=== PATIENT | male | born 1945 | race Native Hawaiian/Other Pacific Islander ===

== ENCOUNTER 2017-09-18 07:13 | Inpatient (IN) | payer OTHER, MEDICAID ==
--- NOTE | 2017-08-18 09:57 | CP.PCM.PN ---
Subjective - Date & Time of Evaluation Date of Evaluation: 08/18/17 Time of Evaluation: 09:55 - Subjective Subjective: Patient has an increased wbc and is scheduled to see outreach rep in august. since this is an elective case, will wait for outreach rep to evaluate patient to do surgery. therefore the case is cancelled for today. Objective - Vital Signs/Intake and Output Vital Signs (last 24 hours): Temp Pulse Resp BP Pulse Ox 97.9 F 75 18 151/90 H 97 08/18/17 09:04 08/18/17 09:04 08/18/17 09:04 08/18/17 09:04 08/18/17 09:04 - Medications Medications: Current Medications Acetaminophen/Codeine Phosphate (Tylenol/Codeine 300 Mg/30 Mg) 2 ea PO Q6 PRN PRN Reason: Pain, moderate (4-7) Dextrose/Sodium Chloride (Dextrose 5%/0.45% Ns 1000 Ml) 1,000 mls @ 100 mls/hr IV .Q10H DORINDA
[~2017-09-18 07:13] MED LIST: Acetaminophen-Codeine 300/30 mg Tab PO PRN; Dextrose 5%/0.45% NS 1,000 ML IV SCH; EPINEPHrine 1:1000 Nasal Sol(30mL) ONE; Lidocaine 2% w Epi 1:100,000 Inj IJ ONE; ceFAZolin IV 1 gm in Dextrose 0 GM/0 ML BAG IVPB ONE
[2017-09-18] MEDS ORDERED: Lidocaine 1%/Epinephrine 1:100000 30 ml vial IJ ONE (07:25)
[2017-09-18] MEDS ORDERED: Dextrose 5%/0.45% NS 1,000 ML IV SCH ×2 (08:30→17:53)
[2017-09-18] MEDS ORDERED: Propofol 10 mg/ml Inj (20 ML) ONE (08:58)
[2017-09-18] MEDS ORDERED: Midazolam 2 MG/2 ML VIAL ONE (09:00)
[2017-09-18] MEDS ORDERED: EPINEPHrine 1:1000 Nasal Sol(30mL) ONE (09:32)
[2017-09-18] MEDS ORDERED: Lactated Ringer's 1,000 ML IV ONE ×2 (09:40→12:00)
[2017-09-18] MEDS: ceFAZolin IV 2 gm in Dextrose 1 GM/50 ML BAG IVPB ONE ×2 (09:45→09:50)
[2017-09-18] MEDS ORDERED: Rocuronium 10 mg/ml (5 ml) ONE (10:10)
[2017-09-18] MEDS: Labetalol 25mg/5ml Syringe IVP PRN ×3 (11:12→11:40)
[2017-09-18] MEDS: HYDROmorphone 0.5 mg/0.5 ml ISec IVP PRN ×3 (11:16→11:49)
[2017-09-18] MEDS ORDERED: (Novolin R) Insulin Human Regular 100 units/ml vial IV ONE ×2 (12:00→13:31)
[2017-09-18] MEDS ORDERED: (Novolin R) Insulin Human Regular 100 units/ml vial ONE (13:40)
--- NOTE | 2017-09-18 14:38 | OP ---
PROCEDURE DATE: 09/18/2017 PREOPERATIVE DIAGNOSIS: Sinusitis. POSTOPERATIVE DIAGNOSIS: Sinusitis. PROCEDURE: Endoscopic bilateral maxillary antrostomy, endoscopic bilateral ethmoidectomy, endoscopic bilateral frontal sinusotomy, and endoscopic bilateral sphenoidotomy. SIGNIFICANT FINDINGS: Sinusitis noted in ethmoid sinuses, polyps noted in ethmoid sinuses, maxillary antrum stenosed on both sides, sphenoid antrum stenosed on both sides, and frontal recess stenosed on both sides. Foreign body noted in the left nasal cavity. DESCRIPTION OF PROCEDURE: The patient was brought into the room, placed in the supine position, and anesthesia was initiated through an ET tube. Navigation was set up and used throughout the case in order to ensure that the skull base and orbit were not entered. Adrenaline-soaked pledgets were inserted into the nasal cavity that remained there for at least 5 minutes and removed. The patient was draped in the usual manner. Attention was turned to the left. A 0-degree scope was inserted into the left nasal cavity. Excess of crusting was noted inside the nasal cavity. On inspection, there was noted of the foreign body in the nasal cavity, which was removed. Polyps were noted emanating from the middle meatus. The polyps and middle turbinate were injected with lidocaine with epinephrine. The polyps emanating from the middle meatus were removed using a debrider. The uncinate process was medialized using a Norton elevator and removed using a debrider. The ethmoid bulla was entered inferomedially going posteriorly to the basal lamella, then anteriorly and superiorly until the ethmoid bulla was removed. The basal lamella was entered, posterior ethmoid cells were entered and opened. The skull base was identified and followed anteriorly all the way to the area of the anterior ethmoid air cells. Frontal recess was noted to be stenosed and opened using forceps. Sphenoid antrum was noted to be stenosed and opened using forceps. Maxillary antrum was located using a curved suction and noted to be stenosed and opened using forceps. Attention was turned to the other side. Polyps emanating from the middle meatus were debrided using a debrider. The middle turbinate was medialized and the uncinate process were medialized using a Norton elevator and uncinate process was removed using a debrider. The ethmoid bulla was entered inferomedially using a debrider going posteriorly to the basal lamella anteriorly and superiorly until the ethmoid bulla was removed. The basal lamella was entered. Posterior ethmoid cells were entered and opened. The skull base was identified and followed anteriorly all the way to the area of the anterior ethmoid air cells. Frontal recess was noted to be stenosed and opened using forceps. The sphenoid antrum was noted to be stenosed and opened using forceps. The maxillary antrum was noted to be stenosed and opened using forceps. The bleeding was controlled using Adrenaline-soaked pledgets and suction cautery. Splints were placed. The patient was taken off anesthesia and taken to recovery room in stable manner. Renny Lara MD [facility]TD[facility]
[2017-09-18] MEDS ORDERED: Metoprolol Succinate 100 mg XL Tab PO STA (16:17)
[2017-09-18] MEDS: Acetaminophen-Codeine 300/30 mg Tab PO PRN (16:36)
[2017-09-18] MEDS ORDERED: Albuterol-Ipratrop 3 mg / 0.5 (3 ml) UD INH PRN (17:49)
--- NOTE | 2017-09-18 17:50 | CP.PCM.CON ---
History of Present Illness - History of Present Illness History of Present Illness: The pt is a 72 year old man with HTN, CAD, elevated WBC (sees Dr Escalante), and DM. Pt did not take beta licha and Micky inhibitor today, as he was npo for surgery. During ENT surgery, he received adrenaline and steroids. BP post op was 201/112. IV hydralazine and labetaolol were given, and the BP came down to 170 systolic. The pt has had 4 coronary PCI, the last in 2013. ASA and plavix were held fo 8 days. No chest pain or BENSON. pt is post op, a little groggy. Review of Systems - Review of Systems All systems: reviewed and no additional remarkable complaints except (as abov.e) Past Patient History - Past Medical History & Family History Past Medical History?: Yes - Past Social History Smoking Status: Never Smoked - CARDIAC Hx Cardiac Disorders: Yes Hx Hypertension: Yes Other/Comment: HX: CARDIAC STENTS(4) - PULMONARY Hx Respiratory Disorders: No - NEUROLOGICAL Hx Neurological Disorder: No - HEENT Hx HEENT Problems: Yes Other/Comment: HX: MAXILLARY SINSUS, FRONTAL SINSUS, ETHMOID SINSUS, SPHENOID SINSUS - RENAL Hx Chronic Kidney Disease: No - ENDOCRINE/METABOLIC Hx Endocrine Disorders: Yes Hx Diabetes Mellitus Type 1: Yes - HEMATOLOGICAL/ONCOLOGICAL Hx Blood Disorders: Yes Other/Comment: Leukocytosis (See Dr. Campbell's note) - INTEGUMENTARY Hx Dermatological Problems: No - MUSCULOSKELETAL/RHEUMATOLOGICAL Hx Musculoskeletal Disorders: No - GASTROINTESTINAL Hx Gastrointestinal Disorders: No - GENITOURINARY/GYNECOLOGICAL Hx Genitourinary Disorders: No - PSYCHIATRIC Hx Psychophysiologic Disorder: No - SURGICAL HISTORY Hx Surgeries: Yes Hx Angioplasty: Yes Hx Coronary Stent: Yes ((4)) - ANESTHESIA Hx Anesthesia: Yes Hx Anesthesia Reactions: No Hx Malignant Hyperthermia: No Has any member of the family had a problem w/ anesthesia?: No Meds Allergies/Adverse Reactions: Allergies Allergy/AdvReac Type Severity Reaction Status Date / Time No Known Allergies Allergy Verified 07/31/17 07:53 - Medications Medications: Current Medications Acetaminophen/Codeine Phosphate (Tylenol/Codeine 300 Mg/30 Mg) 2 ea PO Q6 PRN PRN Reason: Pain, moderate (4-7) Last Admin: 09/18/17 16:36 Dose: 2 ea Dextrose/Sodium Chloride (Dextrose 5%/0.45% Ns 1000 Ml) 1,000 mls @ 100 mls/hr IV .Q10H DORINDA Physical Exam - Constitutional Appears: Well (nasal packing) - Head Exam Head Exam: ATRAUMATIC - Eye Exam Eye Exam: EOMI Pupil Exam: NORMAL ACCOMODATION - Respiratory Exam Respiratory Exam: Rhonchi - Cardiovascular Exam Cardiovascular Exam: REGULAR RHYTHM - GI/Abdominal Exam GI & Abdominal Exam: Normal Bowel Sounds - Exam External exam: NORMAL EXTERNAL EXAM - Extremities Exam Extremities exam: Positive for: normal inspection - Back Exam Back exam: NORMAL INSPECTION - Neurological Exam Neurological exam: Alert, CN II-XII Intact, Oriented x3 - Psychiatric Exam Psychiatric exam: Normal Affect, Normal Mood - Skin Skin Exam: Normal Color Results - Vital Signs Recent Vital Signs: Last Vital Signs Temp 98.9 F 09/18/17 16:36 Pulse 106 H 09/18/17 16:36 Resp 20 09/18/17 16:36 BP 158/80 H 09/18/17 16:36 Pulse Ox 95 09/18/17 16:36 - Labs Labs: Laboratory Results - last 24 hr 09/18/17 09/18/17 09/18/17 07:51 11:50 13:28 POC Glucose (mg/dL) 275 H 311 H 352 H 09/18/17 14:46 POC Glucose (mg/dL) 312 H Assessment & Plan - Assessment and Plan (Free Text) Assessment: 1. HTN: Latest bp is 140 systolic with meds from home given. 2. As pt has cad, would avoid additional adrenaline if possible.. 3. Will order ecg. 4. pt has bilateral rhonchi, Dr Yee aware, consider inhaltion treatment. 4. ASA to be resumed when deemed safe by Dr Lara. Plavix can be held for now. 5. p very somnolent, snores, thick neck, overweight: likely significant sleep apnea; outpatient sleep study is advised.
[2017-09-18] MEDS ORDERED: (Lantus) Insulin Glargine, Recombinant SC SCH ×2 (18:00→22:00)
[2017-09-18 18:15] LABS: LYMPH # 1.8 K/uL (1.0-4.3); NRBC % 0.1 % (0.0-2.0)
[2017-09-18 18:24] LABS: CHLORIDE 97 mmol/L (98-107); SODIUM 129 mmol/L (132-148)
[2017-09-18 18:25] LABS: POTASSIUM 5.5 mmol/L (3.6-5.2)
[2017-09-18 18:26] LABS: BILIRUBIN,TOTAL 1.5 mg/dL (0.2-1.3); GFR AFRICAN-AMERICAN > 60
[2017-09-18 18:27] LABS: ALB/GLOB RATIO 1.4 (1.0-2.1); ALKALINE PHOSPHATASE 99 U/L (38-126); ALT/SGPT 91 U/L (21-72); AST/SGOT 77 U/L (17-59); BLOOD UREA NITROGEN 14 mg/dL (9-20); CARBON DIOXIDE 19 mmol/L (22-30); GLUCOSE,RANDOM 356 mg/dL (75-110); PHOSPHOROUS 3.5 mg/dL (2.5-4.5); TOTAL PROTEIN 7.5 g/dL (6.3-8.3)
[2017-09-18 18:28] LABS: BASO # 0.5 K/uL (0.0-0.2); BASO % 1.1 % (0.0-2.0); CALCIUM 8.3 mg/dl (8.6-10.4); EOS # 0.2 K/uL (0.0-0.7); EOS % 0.5 % (0.0-4.0); HEMATOCRIT 38.9 % (35.0-51.0); LYMPH % 4.2 % (20.0-40.0); MAGNESIUM 1.4 mg/dL (1.6-2.3); MEAN CELL VOLUME 84.4 fL (80.0-94.0); MEAN CORPUSCULAR HEMOGLOBIN 26.7 pg (27.0-31.0); MEAN CORPUSCULAR HGB CONC 31.6 g/dL (33.0-37.0); MEAN PLATELET VOLUME 10.1 fL (7.2-11.7); MONO # 1.1 K/uL (0.0-0.8); MONO % 2.5 % (0.0-10.0); PLATELET COUNT 311 K/uL (130-400)
[2017-09-18 18:38] LABS: WHITE BLOOD COUNT 42.1 K/uL (4.8-10.8)
[2017-09-18] MEDS: (Novolin R) Insulin Human Regular 100 units/ml vial SC SCH ×2 (18:50→21:16)
[2017-09-18 19:11] LABS: METAMYELOCYTE 3 % (0-0)
[2017-09-18 19:12] LABS: MYELOCYTE 2 % (0-0); NEUTROPHIL 81 % (50-75); TOTAL CELLS COUNTED 100
[2017-09-18 19:13] LABS: PLATELET CLUMPS PRESENT
[2017-09-18] MEDS: Piperacill/Tazo 3.375gm in Dex 3.375 GM/50 ML BAG IVPB SCH (21:12)
[2017-09-18 21:32] LABS: RBC URINE < 1 /hpf (0-3); URINE BILIRUBIN NEGATIVE (NEGATIVE); URINE BLOOD NEGATIVE (NEGATIVE); URINE COLOR Yellow (YELLOW); URINE GLUCOSE (UA) 3+ mg/dL (Normal); URINE KETONE 1+ mg/dL (NEGATIVE); URINE LEUKOCYTE ESTERASE NEG Leu/uL (Negative); URINE PROTEIN NEGATIVE (NEGATIVE); URINE UROBILINOGEN NORMAL mg/dL (0.2-1.0)
--- NOTE | 2017-09-18 21:54 | CP.PCM.HP ---
<Isaac Larkin - Last Filed: 09/18/17 22:55> History of Present Illness - History of Present Illness History of Present Illness: Patient seen and evaluated at approximately 18:00 on 09/18/17 in SDS Room 6 Patient is currently a full code status. In the case of emergencies, please contact the Son, Néstor Pandey. He can be reached at [phone]. CC: can't breathe, elevated BP HPI: 72 year old male with PMHx significant for HTN, CAD s/p 4 stents, DM , Chronic Leukocytosis and suspected JESUS presented in [facility] following ENT surgery earlier in the day. Patient states that he was scheduled to have the procedure yesterday but then it was rescheduled to today. Patient states that in preparation for the procedure, he was asked to skip his BP medication, He states that he did not take his medications for the past two days as a result. Patient states that ten years he go, he had some sort of trauma to the face which resulted in a foreign body which entered and obstructed his nasal passages. Patient states that he has has problems breathing off and on as a result. After the procedure earlier today, patient's blood pressure became quite elevated. He admitted to a mild headache and some dyspnea. Patient denies chest pain, palpitations, paresthesias, nausea and vomiting. PMHx-refer to above PSHx- Stenting procedure Fam Hx- reviewed and patient denies Social- admits to smoking a few cigarettes over 40 years ago for approx 1-2 years; denies alcohol and drug use Meds- Atorvastatin 10 mg, ASA 81 mg, Effient 10 mg, Enalapril 10 mg, Metoprolol Succinate 200 mg . All are taken once daily; Insulin Allergies- NKDA PMD: Dr. Branden Guerra Present on Admission - Present on Admission Any Indicators Present on Admission: No Review of Systems - Constitutional Constitutional: absent: Weight Loss, Weakness - EENT Eyes: absent: Blurred Vision, Change in Vision - Cardiovascular Cardiovascular: Dyspnea. absent: Chest Pain, Chest Pain at Rest - Gastrointestinal Gastrointestinal: absent: Nausea, Vomiting - Neurological Neurological: absent: Abnormal Hearing, Abnormal Movements - Hematologic/Lymphatic Hematologic: absent: Easy Bruising Past Patient History - Past Medical History & Family History Past Medical History?: Yes - Past Social History Smoking Status: Former Smoker Alcohol: None Drugs: Denies - CARDIAC Hx Cardiac Disorders: Yes Hx Hypertension: Yes Other/Comment: HX: CARDIAC STENTS(4) - PULMONARY Hx Respiratory Disorders: No - NEUROLOGICAL Hx Neurological Disorder: No - HEENT Hx HEENT Problems: Yes Other/Comment: HX: MAXILLARY SINSUS, FRONTAL SINSUS, ETHMOID SINSUS, SPHENOID SINSUS - RENAL Hx Chronic Kidney Disease: No - ENDOCRINE/METABOLIC Hx Endocrine Disorders: Yes Hx Diabetes Mellitus Type 1: Yes - HEMATOLOGICAL/ONCOLOGICAL Hx Blood Disorders: Yes Other/Comment: Leukocytosis (See Dr. Campbell's note) - INTEGUMENTARY Hx Dermatological Problems: No - MUSCULOSKELETAL/RHEUMATOLOGICAL Hx Musculoskeletal Disorders: No Hx Falls: No - GASTROINTESTINAL Hx Gastrointestinal Disorders: No - GENITOURINARY/GYNECOLOGICAL Hx Genitourinary Disorders: No - PSYCHIATRIC Hx Psychophysiologic Disorder: No Hx Substance Use: No - SURGICAL HISTORY Hx Surgeries: Yes Hx Angioplasty: Yes Hx Coronary Stent: Yes ((4)) - ANESTHESIA Hx Anesthesia: Yes Hx Anesthesia Reactions: No Hx Malignant Hyperthermia: No Has any member of the family had a problem w/ anesthesia?: No Meds Allergies/Adverse Reactions: Allergies Allergy/AdvReac Type Severity Reaction Status Date / Time No Known Allergies Allergy Verified 07/31/17 07:53 Physical Exam - Constitutional Appears: Non-toxic, No Acute Distress - Head Exam Head Exam: ATRAUMATIC, NORMAL INSPECTION, NORMOCEPHALIC - Eye Exam Eye Exam: EOMI, Normal appearance, PERRL - ENT Exam ENT Exam: Mucous Membranes Moist Additional comments: residual dried blood in the oral cavity as well as outer nares - Expanded ENT Exam Expanded Mouth exam: tongue normal - Neck Exam Neck exam: Positive for: Full Rom - Respiratory Exam Respiratory Exam: Rhonchi, NORMAL BREATHING PATTERN. absent: Wheezes - Cardiovascular Exam Cardiovascular Exam: Tachycardia, +S1, +S2. absent: JVD - GI/Abdominal Exam GI & Abdominal Exam: Normal Bowel Sounds, Soft. absent: Firm, Guarding, Tenderness Additional comments: central obesity - Extremities Exam Extremities exam: Positive for: full ROM, pedal edema Additional comments: unilateral LE swelling - Back Exam Back exam: FULL ROM - Neurological Exam Neurological exam: Alert, CN II-XII Intact, Oriented x3 - Psychiatric Exam Psychiatric exam: Normal Affect, Normal Mood - Skin Skin Exam: Dry, Intact, Normal Color, Warm Results - Vital Signs Recent Vital Signs: Last Vital Signs Temp 98.5 F 09/18/17 19:52 Pulse 109 H 09/18/17 21:07 Resp 17 09/18/17 19:52 BP 160/77 H 09/18/17 19:52 Pulse Ox 93 L 09/18/17 19:52 - Labs Result Diagrams: 09/18/17 18:11 09/18/17 18:11 Labs: Laboratory Results - last 24 hr 09/18/17 09/18/17 09/18/17 07:51 11:50 13:28 WBC RBC Hgb Hct MCV MCH MCHC RDW Plt Count MPV Neut % (Auto) Lymph % (Auto) [place] % (Auto) Eos % (Auto) Baso % (Auto) Neut # Lymph # [place] # Eos # Baso # Neutrophils % (Manual) Band Neutrophils % Lymphocytes % (Manual) Monocytes % (Manual) Metamyelocytes % Myelocytes % Blast Cells % Platelet Estimate Plt Clumps, EDTA Sodium Potassium Chloride Carbon Dioxide Anion Gap BUN Creatinine Est GFR ( Amer) Est GFR (Non-Af Amer) POC Glucose (mg/dL) 275 H 311 H 352 H Random Glucose Calcium Phosphorus Magnesium Total Bilirubin AST ALT Alkaline Phosphatase Total Protein Albumin Globulin Albumin/Globulin Ratio Procalcitonin Urine Color Urine Clarity Urine pH Ur Specific [place] Urine Protein Urine Glucose (UA) Urine Ketones Urine Blood Urine Nitrate Urine Bilirubin Urine Urobilinogen Ur Leukocyte Esterase Urine RBC (Auto) Ur Squamous Epith Cells 09/18/17 09/18/17 09/18/17 14:46 18:11 18:11 WBC 42.1 H* RBC 4.60 Hgb 12.3 Hct 38.9 MCV 84.4 MCH 26.7 L MCHC 31.6 L RDW 15.0 H Plt Count 311 MPV 10.1 Neut % (Auto) 91.7 H Lymph % (Auto) 4.2 L [place] % (Auto) 2.5 Eos % (Auto) 0.5 Baso % (Auto) 1.1 Neut # 38.6 H Lymph # 1.8 [place] # 1.1 H Eos # 0.2 Baso # 0.5 H Neutrophils % (Manual) 81 H Band Neutrophils % 9 H Lymphocytes % (Manual) 3 L Monocytes % (Manual) 2 Metamyelocytes % 3 H Myelocytes % 2 H Blast Cells % TEST NOT PERFORMED Platelet Estimate Normal Plt Clumps, EDTA Present Sodium 129 L Potassium 5.5 H Chloride 97 L Carbon Dioxide 19 L Anion Gap 19 BUN 14 Creatinine 0.6 L Est GFR ( Amer) > 60 Est GFR (Non-Af Amer) > 60 POC Glucose (mg/dL) 312 H Random Glucose 356 H Calcium 8.3 L Phosphorus 3.5 Magnesium 1.4 L Total Bilirubin 1.5 H AST 77 H ALT 91 H Alkaline Phosphatase 99 Total Protein 7.5 Albumin 4.4 Globulin 3.1 Albumin/Globulin Ratio 1.4 Procalcitonin Urine Color Urine Clarity Urine pH Ur Specific [place] Urine Protein Urine Glucose (UA) Urine Ketones Urine Blood Urine Nitrate Urine Bilirubin Urine Urobilinogen Ur Leukocyte Esterase Urine RBC (Auto) Ur Squamous Epith Cells 09/18/17 09/18/17 09/18/17 18:17 20:31 20:55 WBC RBC Hgb Hct MCV MCH MCHC RDW Plt Count MPV Neut % (Auto) Lymph % (Auto) [place] % (Auto) Eos % (Auto) Baso % (Auto) Neut # Lymph # [place] # Eos # Baso # Neutrophils % (Manual) Band Neutrophils % Lymphocytes % (Manual) Monocytes % (Manual) Metamyelocytes % Myelocytes % Blast Cells % Platelet Estimate Plt Clumps, EDTA Sodium Potassium Chloride Carbon Dioxide Anion Gap BUN Creatinine Est GFR ( Amer) Est GFR (Non-Af Amer) POC Glucose (mg/dL) 360 H 445 H* Random Glucose Calcium Phosphorus Magnesium Total Bilirubin AST ALT Alkaline Phosphatase Total Protein Albumin Globulin Albumin/Globulin Ratio Procalcitonin 0.65 H Urine Color Urine Clarity Urine pH Ur Specific [place] Urine Protein Urine Glucose (UA) Urine Ketones Urine Blood Urine Nitrate Urine Bilirubin Urine Urobilinogen Ur Leukocyte Esterase Urine RBC (Auto) Ur Squamous Epith Cells 09/18/17 21:16 WBC RBC Hgb Hct MCV MCH MCHC RDW Plt Count MPV Neut % (Auto) Lymph % (Auto) [place] % (Auto) Eos % (Auto) Baso % (Auto) Neut # Lymph # [place] # Eos # Baso # Neutrophils % (Manual) Band Neutrophils % Lymphocytes % (Manual) Monocytes % (Manual) Metamyelocytes % Myelocytes % Blast Cells % Platelet Estimate Plt Clumps, EDTA Sodium Potassium Chloride Carbon Dioxide Anion Gap BUN Creatinine Est GFR ( Amer) Est GFR (Non-Af Amer) POC Glucose (mg/dL) Random Glucose Calcium Phosphorus Magnesium Total Bilirubin AST ALT Alkaline Phosphatase Total Protein Albumin Globulin Albumin/Globulin Ratio Procalcitonin Urine Color Yellow Urine Clarity Clear Urine pH 5.0 Ur Specific [place] 1.025 Urine Protein Negative Urine Glucose (UA) 3+ H Urine Ketones 1+ H Urine Blood Negative Urine Nitrate Negative Urine Bilirubin Negative Urine Urobilinogen Normal Ur Leukocyte Esterase Neg Urine RBC (Auto) < 1 Ur Squamous Epith Cells < 1 Assessment & Plan (1) Leukocytosis Assessment and Plan: Elevated No Fevers History of Chronic Elevated WBCs for which patient follows Dr. Court Campbell. Will follow up cultures. On Zosyn and Florastor (Started 09/18) Patient's last known recorded WBC count was 33.4 on 09/02. Info is included in the physical paper chart Will Consult Dr. Campbell at this time; however if she does not come to [facility] for consults, will have to consult Dr. Wills F/U labs Status: Chronic (2) H/O nasal sinusotomy Assessment and Plan: Management per Dr. Lara Cont Tylenol #3 Recommendations for augmentin, but in light of leukocytosis, will empirically start Zosyn Status: Acute (3) Dyspnea Assessment and Plan: Duonebs at this time CXR: Prelim reading by expert medical writer- cardiomegaly, effusions b/l, venous congestion. Wait for official read Status: Chronic (4) Hypertension Assessment and Plan: Hypertensive urgency earlier now resolved. Stable Metoprolol and Enalapril Cont to monitor Pain control Cardiology on the case ( Dr. Adair) Status: Chronic (5) Diabetes mellitus Assessment and Plan: ISS A1c Insulin Glargine 35 units QHS Accuchecks Counseling Status: Acute (6) Hx of coronary artery disease Assessment and Plan: 2 stents placed 5 years ago and 2 stents placed 10 years No anticoagulants at this time due to some residual epistaxis s/p ENT surgical procedure. F/U EKG Computed Tomography Scanner Operator Dr. Adair on the case Status: Acute (7) Swelling of lower extremity Assessment and Plan: Venous dopplers F/U Status: Acute (8) Prophylactic measure Assessment and Plan: No anticoagulants at this time due to some residual epistaxis s/p ENT surgical procedure. No SCDs due to unilateral swelling GI prophylaxis not indicated Status: Acute <Shellie Yee V - Last Filed: 09/19/17 15:38> Results - Vital Signs Recent Vital Signs: Last Vital Signs Temp 98.5 F 09/19/17 07:15 Pulse 91 H 09/19/17 08:29 Resp 20 09/19/17 07:15 BP 119/74 09/19/17 10:51 Pulse Ox 95 09/19/17 07:15 - Labs Result Diagrams: 09/19/17 08:25 09/19/17 08:25 Labs: Laboratory Results - last 24 hr 09/18/17 09/18/17 09/18/17 18:11 18:11 18:17 WBC 42.1 H* RBC 4.60 Hgb 12.3 Hct 38.9 MCV 84.4 MCH 26.7 L MCHC 31.6 L RDW 15.0 H Plt Count 311 MPV 10.1 Neut % (Auto) 91.7 H Lymph % (Auto) 4.2 L [place] % (Auto) 2.5 Eos % (Auto) 0.5 Baso % (Auto) 1.1 Neut # 38.6 H Lymph # 1.8 [place] # 1.1 H Eos # 0.2 Baso # 0.5 H Neutrophils % (Manual) 81 H Band Neutrophils % 9 H Lymphocytes % (Manual) 3 L Monocytes % (Manual) 2 Metamyelocytes % 3 H Myelocytes % 2 H Blast Cells % TEST NOT PERFORMED Platelet Estimate Normal Plt Clumps, EDTA Present Large Platelets Anisocytosis (manual) PT INR APTT Sodium 129 L Potassium 5.5 H Chloride 97 L Carbon Dioxide 19 L Anion Gap 19 BUN 14 Creatinine 0.6 L Est GFR ( Amer) > 60 Est GFR (Non-Af Amer) > 60 POC Glucose (mg/dL) 360 H Random Glucose 356 H Calcium 8.3 L Phosphorus 3.5 Magnesium 1.4 L Total Bilirubin 1.5 H AST 77 H ALT 91 H Alkaline Phosphatase 99 Total Protein 7.5 Albumin 4.4 Globulin 3.1 Albumin/Globulin Ratio 1.4 Procalcitonin Urine Color Urine Clarity Urine pH Ur Specific [place] Urine Protein Urine Glucose (UA) Urine Ketones Urine Blood Urine Nitrate Urine Bilirubin Urine Urobilinogen Ur Leukocyte Esterase Urine RBC (Auto) Ur Squamous Epith Cells 09/18/17 09/18/17 09/18/17 20:31 20:55 21:16 WBC RBC Hgb Hct MCV MCH MCHC RDW Plt Count MPV Neut % (Auto) Lymph % (Auto) [place] % (Auto) Eos % (Auto) Baso % (Auto) Neut # Lymph # [place] # Eos # Baso # Neutrophils % (Manual) Band Neutrophils % Lymphocytes % (Manual) Monocytes % (Manual) Metamyelocytes % Myelocytes % Blast Cells % Platelet Estimate Plt Clumps, EDTA Large Platelets Anisocytosis (manual) PT INR APTT Sodium Potassium Chloride Carbon Dioxide Anion Gap BUN Creatinine Est GFR ( Amer) Est GFR (Non-Af Amer) POC Glucose (mg/dL) 445 H* Random Glucose Calcium Phosphorus Magnesium Total Bilirubin AST ALT Alkaline Phosphatase Total Protein Albumin Globulin Albumin/Globulin Ratio Procalcitonin 0.65 H Urine Color Yellow Urine Clarity Clear Urine pH 5.0 Ur Specific [place] 1.025 Urine Protein Negative Urine Glucose (UA) 3+ H Urine Ketones 1+ H Urine Blood Negative Urine Nitrate Negative Urine Bilirubin Negative Urine Urobilinogen Normal Ur Leukocyte Esterase Neg Urine RBC (Auto) < 1 Ur Squamous Epith Cells < 1 09/19/17 09/19/17 09/19/17 02:20 06:39 08:25 WBC 55.7 H* RBC 4.96 Hgb 13.6 Hct 42.4 MCV 85.5 MCH 27.3 MCHC 32.0 L RDW 14.8 H Plt Count 472 H D MPV 9.1 Neut % (Auto) 89.2 H Lymph % (Auto) 5.2 L [place] % (Auto) 5.1 Eos % (Auto) 0.0 Baso % (Auto) 0.5 Neut # 49.6 H Lymph # 2.9 [place] # 2.8 H Eos # 0.0 Baso # 0.3 H Neutrophils % (Manual) 79 H Band Neutrophils % 9 H Lymphocytes % (Manual) 4 L Monocytes % (Manual) 4 Metamyelocytes % 2 H Myelocytes % 2 H Blast Cells % Platelet Estimate Slightly increased H Plt Clumps, EDTA Large Platelets Present Anisocytosis (manual) Slight PT INR APTT Sodium Potassium Chloride Carbon Dioxide Anion Gap BUN Creatinine Est GFR ( Amer) Est GFR (Non-Af Amer) POC Glucose (mg/dL) 367 H 343 H Random Glucose Calcium Phosphorus Magnesium Total Bilirubin AST ALT Alkaline Phosphatase Total Protein Albumin Globulin Albumin/Globulin Ratio Procalcitonin Urine Color Urine Clarity Urine pH Ur Specific [place] Urine Protein Urine Glucose (UA) Urine Ketones Urine Blood Urine Nitrate Urine Bilirubin Urine Urobilinogen Ur Leukocyte Esterase Urine RBC (Auto) Ur Squamous Epith Cells 09/19/17 09/19/17 09/19/17 08:25 08:25 11:14 WBC RBC Hgb Hct MCV MCH MCHC RDW Plt Count MPV Neut % (Auto) Lymph % (Auto) [place] % (Auto) Eos % (Auto) Baso % (Auto) Neut # Lymph # [place] # Eos # Baso # Neutrophils % (Manual) Band Neutrophils % Lymphocytes % (Manual) Monocytes % (Manual) Metamyelocytes % Myelocytes % Blast Cells % Platelet Estimate Plt Clumps, EDTA Large Platelets Anisocytosis (manual) PT 15.8 H INR 1.4 APTT 33 Sodium 131 L Potassium 4.3 Chloride 94 L Carbon Dioxide 25 Anion Gap 16 BUN 22 H Creatinine 1.0 Est GFR ( Amer) > 60 Est GFR (Non-Af Amer) > 60 POC Glucose (mg/dL) 433 H* Random Glucose 374 H Calcium 8.9 Phosphorus 3.6 Magnesium 2.0 Total Bilirubin 0.9 AST 56 ALT 98 H Alkaline Phosphatase 91 Total Protein 7.6 Albumin 4.4 Globulin 3.2 Albumin/Globulin Ratio 1.3 Procalcitonin Urine Color Urine Clarity Urine pH Ur Specific [place] Urine Protein Urine Glucose (UA) Urine Ketones Urine Blood Urine Nitrate Urine Bilirubin Urine Urobilinogen Ur Leukocyte Esterase Urine RBC (Auto) Ur Squamous Epith Cells Attending/Attestation - Attestation I have personally seen and examined this patient.: Yes I have fully participated in the care of the patient.: Yes I have reviewed all pertinent clinical information: Yes Notes (Text): This is late computer entry for 09/18/17. Patient seen, examined, and case discussed with day-time resident. Patient with known hx of CAD s/p 2 stents (2013), leukocytosis (on-going workup with private foam fabricator, Dr Campbell), diabetes, hypertension, and lipid disorder completed ENT procedure earlier today for chronic sinusitis but had uncontrolled hypertension (as high SBP as 200, which is stabilized to 150s during my exam) and uncontrolled sugars >400. Per discussion with the patient, patient has not taken his home medications for the past two days in preparation for his surgery. Patient reports he was told not to take them day prior to surgery. Patient reports intended surgery was delayed by 1 day so has been without his medications for two days. Discussed with same-day surgery staff, that is unusual because that is not part of instructions they tell patients prior to surgery to not take their meds. Patient has been off his Aspirin and Plavix for 7 days prior to surgery as instructed by his PMD. Patient at time of surgical clearance was told his white count was 21 and has seen the foam fabricator for about 3 visits but cannot recall what workup has been accomplished. Discussed with equipment or machinery cleaner, regarding blood pressure medications and also noting decrease air entry. Patient ordered for nebulizer treatment. Patient started on IV antibiotics in light if elevated leukocytosis, cultures were drawn. Bed changed to telemetry in light of uncontrolled hypertension, noting trend as high SBP: 200s, in light of his cardiac hx. Patient seen in same-day surgery suite on 09/18/17 at approximately 5:15PM. Discussed with nursing staff. Admitting orders discussed with day-time resident. Assessment/Plan (1) Leukocytosis Assessment and Plan: * Elevated; No Fevers * History of Chronic Elevated WBCs for which patient follows [facility] as outpatient * Will follow up blood cultures, urine, and chest xray, procalcitonin. On Zosyn and Vancomycin empirically and Florastor 250mg PO bid as probiotic (Started ) * Patient's last known recorded WBC count was 33.4 on 09/02. Info is included in the physical paper chart * Will Consult Dr. Campbell at this time; however if she does not come to [facility] for consults, will consider lisette Oneal if warranted. Status: Chronic (2) H/O nasal sinusotomy Assessment and Plan: * Management per Dr. Lara; Patient is post-operative Day 0 for chronic sinusitis * Patient has been off Aspirin/Plavix for about a week prior to surgery. * Monitor H/H * Cont Tylenol #3 * ENT started for augmentin, but in light of leukocytosis, will empirically start Zosyn IV Status: Acute (3) Dyspnea Assessment and Plan: * Duonebs PRN shortness of breathe at this time * CXR: Prelim reading by expert medical writer- cardiomegaly, effusions b/l, venous congestion. Wait for official read Status: Chronic (4) Hypertension Assessment and Plan: * Uncontrolled SBP: 200s in PACU; following anti-hypertensive medications SBP: 150s at bedside. * Cardiology (Dr. Adair) seen and case discussed with him * Resume home medications: Toproxl and Enalapril * Pain management per ENT * Monitor vital signs Status: Chronic (5) Diabetes mellitus; uncontrolled Assessment and Plan: * High dose insulin sliding scale * A1c Candy * resume home Insulin Glargine 35 units QHS * Accuchecks QAC and HS * Counseling provided at bedside; recommended for patient to take half his normal long acting insulin prior to procedure for coverage for uncontrolled sugars Status: Chronic (6) Hx of coronary artery disease Assessment and Plan: * 2 stents placed 5 years ago and 2 stents placed 10 years * Patient has been off Aspirin, Plavix for about 1 week prior to procedure * No anticoagulants at this time due to some residual epistaxis s/p ENT surgical procedure. * ENT to determine when patient can resume aspirin and plavix * Computed Tomography Scanner Operator Dr. Adair on the case Status: Chronic (7) Swelling of lower extremity Assessment and Plan: * Minimal per my exam * Low suspicion for DVT (patient is not immobile, no prior surgeries, no known cancer hx confirmed) * Venous dopplers ordered Status: Acute (8) Prophylactic measure Assessment and Plan: * No anticoagulants at this time due to some residual epistaxis s/p ENT surgical procedure. * Surgeon to determine when patient can restart his aspirin/plavix s/p post procedure No SCDs given minimal swelling GI prophylaxis not indicated Status: Acute
[2017-09-19] MEDS ORDERED: Magnesium Sulfate 1 gm in D5W 1 GM/100 ML BAG IVPB ONE (01:36)
[2017-09-19] MEDS: Piperacill/Tazo 3.375gm in Dex 3.375 GM/50 ML BAG IVPB SCH ×2 (01:45→08:30)
[2017-09-19] MEDS ORDERED: Vancomycin 1 gm/NS 200 ml 1 GM/200 ML BAG IVPB SCH (02:30)
--- NOTE | 2017-09-19 07:33 | RAD ---
HISTORY: wheezing COMPARISON: No prior. FINDINGS: LUNGS: Moderate venous congestion with patchy airspace opacities in the mid to lower lung zones. Scattered nodular densities in both lungs. PLEURA: As above. CARDIOVASCULAR: Cardiomegaly. OSSEOUS STRUCTURES: No significant abnormalities. VISUALIZED UPPER ABDOMEN: Normal. OTHER FINDINGS: None. IMPRESSION: Moderate venous congestion with patchy airspace opacities in the mid to lower lung zones. Scattered nodular densities in both lungs.
[2017-09-19 07:55] VITALS: BP 119/74; PULSE 91; RESP 20; TEMP 98.5; O2SAT 95
[2017-09-19] MEDS: (Novolin R) Insulin Human Regular 100 units/ml vial SC SCH ×2 (08:15→11:54)
[2017-09-19 08:41] LABS: BASO # 0.3 K/uL (0.0-0.2); BASO % 0.5 % (0.0-2.0); HEMATOCRIT 42.4 % (35.0-51.0); LYMPH # 2.9 K/uL (1.0-4.3); LYMPH % 5.2 % (20.0-40.0); MEAN CELL VOLUME 85.5 fL (80.0-94.0); MEAN CORPUSCULAR HEMOGLOBIN 27.3 pg (27.0-31.0); MEAN PLATELET VOLUME 9.1 fL (7.2-11.7); MONO # 2.8 K/uL (0.0-0.8); MONO % 5.1 % (0.0-10.0); RED CELL DISTRIBUTION WIDTH 14.8 % (11.5-14.5)
[2017-09-19 08:44] LABS: INR 1.4
[2017-09-19 08:56] LABS: CHLORIDE 94 mmol/L (98-107); POTASSIUM 4.3 mmol/L (3.6-5.2); SODIUM 131 mmol/L (132-148)
[2017-09-19 08:57] LABS: PLATELET COUNT 472 K/uL (130-400); WHITE BLOOD COUNT 55.7 K/uL (4.8-10.8)
[2017-09-19 08:58] LABS: ALB/GLOB RATIO 1.3 (1.0-2.1); ALKALINE PHOSPHATASE 91 U/L (38-126); ALT/SGPT 98 U/L (21-72); AST/SGOT 56 U/L (17-59); BILIRUBIN,TOTAL 0.9 mg/dL (0.2-1.3); BLOOD UREA NITROGEN 22 mg/dL (9-20); CARBON DIOXIDE 25 mmol/L (22-30); GFR AFRICAN-AMERICAN > 60; TOTAL PROTEIN 7.6 g/dL (6.3-8.3)
[2017-09-19 08:59] LABS: CALCIUM 8.9 mg/dl (8.6-10.4); GLUCOSE,RANDOM 374 mg/dL (75-110); PHOSPHOROUS 3.6 mg/dL (2.5-4.5)
[2017-09-19] MEDS ORDERED: Saccharomyces Boulardi 250 mg Cap PO SCH (10:00)
[2017-09-19] MEDS ORDERED: Metoprolol Succinate 100 mg XL Tab PO SCH (10:00)
--- NOTE | 2017-09-19 10:01 | CP.PCM.PN ---
Objective - Vital Signs/Intake and Output Vital Signs (last 24 hours): Temp Pulse Resp BP Pulse Ox 98.5 F 91 H 20 119/74 95 09/19/17 07:15 09/19/17 07:15 09/19/17 07:15 09/19/17 07:15 09/19/17 07:15 Intake and Output: 09/19/17 09/19/17 06:59 18:59 Intake Total 250 Balance 250 - Medications Medications: Current Medications Acetaminophen/Codeine Phosphate (Tylenol/Codeine 300 Mg/30 Mg) 2 ea PO Q6 PRN PRN Reason: Pain, moderate (4-7) Last Admin: 09/18/17 16:36 Dose: 2 ea Albuterol/Ipratropium (Duoneb 3 Mg/0.5 Mg (3 Ml) Ud) 3 ml INH RQ6 PRN PRN Reason: Shortness of Breath Last Admin: 09/18/17 18:40 Dose: 3 ml Enalapril Maleate (Vasotec) 10 mg PO DAILY [facility] Furosemide (Lasix) 40 mg IVP DAILY [facility] Hydralazine HCl (Apresoline) 10 mg IVP Q6H PRN PRN Reason: Systolic Blood Pressure Piperacillin Sod/Tazobactam Sod (Zosyn 3.375 Gm Iv Premix) 3.375 gm in 50 mls @ 100 mls/hr IVPB Q6H [facility] Last Admin: 09/19/17 01:45 Dose: 100 mls/hr Vancomycin/Sodium Chloride (Vancomycin 1 Gm/Ns 200 Ml) 1 gm in 200 mls @ 166.7 mls/hr IVPB Q24H [facility] Stop: 09/24/17 02:31 Last Admin: 09/19/17 03:27 Dose: 166.7 mls/hr Insulin Glargine (Lantus) 35 unit SC QPM [facility] Last Admin: 09/18/17 21:31 Dose: 35 units Insulin Human Regular (Novolin R) 0 unit SC ACHS [facility] PRN Reason: Protocol Last Admin: 09/18/17 21:16 Dose: 4 unit Metoprolol Succinate (Toprol Xl) 200 mg PO DAILY [facility] Saccharomyces Boulardii (Florastor) 250 mg PO BID [facility] - Labs Labs: 09/19/17 08:25 09/19/17 08:25 PT 15.8 SECONDS (9.7-12.2) H 09/19/17 08:25 INR 1.4 09/19/17 08:25 APTT 33 SECONDS (21-34) 09/19/17 08:25
[2017-09-19 10:22] LABS: METAMYELOCYTE 2 % (0-0); MYELOCYTE 2 % (0-0); NEUTROPHIL 79 % (50-75); TOTAL CELLS COUNTED 100
[2017-09-19 10:23] LABS: LARGE PLATELETS PRESENT
[2017-09-19] MEDS: Acetaminophen-Codeine 300/30 mg Tab PO PRN (10:48)
[2017-09-19] MEDS ORDERED: (Lantus) Insulin Glargine, Recombinant SC SCH (11:47)
[2017-09-19] MEDS ORDERED: (Novolog Mix 70/30) Insulin Aspart/Insulin Aspar 100 units/ml SC SCH (16:30)
--- NOTE | 2017-09-19 19:27 | CON ---
DATE: 09/19/2017 REQUESTING PHYSICIAN: Dr. Yee. HISTORY OF PRESENT ILLNESS: This is a 72-year-old male status post sinus surgery yesterday, who has high blood sugar levels. Today, the patient complains of a very mild bleeding on both sides of the nostril. Mild pain. PHYSICAL EXAMINATION HEENT: There is no bleeding from the nose at this point and the stents are in. PLAN: The patient is okay to discharge home from an ENT point of view. A little bit of bleeding after sinus surgery is normal. The patient to follow up in my office next week. Renny Lara MD
--- NOTE | 2017-09-19 20:06 | CP.PCM.DIS ---
Provider - Provider Date of Admission: 09/18/17 16:33 Attending physician: Shellie Yee DO Primary care physician: Dr. Guerra Consults: Dr. Giovany Lara Time Spent in preparation of Discharge (in minutes): 45 Hospital Course - Lab Results Lab Results: Micro Results 09/18/17 22:44 Urine Urine Culture - Final No Growth (<1,000 CFU/ML) Most Recent Lab Values WBC 55.7 K/uL (4.8-10.8) H* 09/19/17 08:25 RBC 4.96 Mil/uL (4.40-5.90) 09/19/17 08:25 Hgb 13.6 g/dL (12.0-18.0) 09/19/17 08:25 Hct 42.4 % (35.0-51.0) 09/19/17 08:25 MCV 85.5 fL (80.0-94.0) 09/19/17 08:25 MCH 27.3 pg (27.0-31.0) 09/19/17 08:25 MCHC 32.0 g/dL (33.0-37.0) L 09/19/17 08:25 RDW 14.8 % (11.5-14.5) H 09/19/17 08:25 Plt Count 472 K/uL (130-400) H D 09/19/17 08:25 MPV 9.1 fL (7.2-11.7) 09/19/17 08:25 Neut % (Auto) 89.2 % (50.0-75.0) H 09/19/17 08:25 Lymph % (Auto) 5.2 % (20.0-40.0) L 09/19/17 08:25 Greene % (Auto) 5.1 % (0.0-10.0) 09/19/17 08:25 Eos % (Auto) 0.0 % (0.0-4.0) 09/19/17 08:25 Baso % (Auto) 0.5 % (0.0-2.0) 09/19/17 08:25 Neut # 49.6 K/uL (1.8-7.0) H 09/19/17 08:25 Lymph # 2.9 K/uL (1.0-4.3) 09/19/17 08:25 Greene # 2.8 K/uL (0.0-0.8) H 09/19/17 08:25 Eos # 0.0 K/uL (0.0-0.7) 09/19/17 08:25 Baso # 0.3 K/uL (0.0-0.2) H 09/19/17 08:25 Neutrophils % (Manual) 79 % (50-75) H 09/19/17 08:25 Band Neutrophils % 9 % (0-2) H 09/19/17 08:25 Lymphocytes % (Manual) 4 % (20-40) L 09/19/17 08:25 Monocytes % (Manual) 4 % (0-10) 09/19/17 08:25 Metamyelocytes % 2 % (0-0) H 09/19/17 08:25 Myelocytes % 2 % (0-0) H 09/19/17 08:25 Blast Cells % TEST NOT PERFORMED 09/18/17 18:11 Platelet Estimate Slightly increased (NORMAL) H 09/19/17 08:25 Plt Clumps, EDTA Present 09/18/17 18:11 Large Platelets Present 09/19/17 08:25 Anisocytosis (manual) Slight 09/19/17 08:25 PT 15.8 SECONDS (9.7-12.2) H 09/19/17 08:25 INR 1.4 09/19/17 08:25 APTT 33 SECONDS (21-34) 09/19/17 08:25 Sodium 131 mmol/L (132-148) L 09/19/17 08:25 Potassium 4.3 mmol/L (3.6-5.2) 09/19/17 08:25 Chloride 94 mmol/L (98-107) L 09/19/17 08:25 Carbon Dioxide 25 mmol/L (22-30) 09/19/17 08:25 Anion Gap 16 (10-20) 09/19/17 08:25 BUN 22 mg/dL (9-20) H 09/19/17 08:25 Creatinine 1.0 mg/dL (0.8-1.5) 09/19/17 08:25 Est GFR ( Amer) > 60 09/19/17 08:25 Est GFR (Non-Af Amer) > 60 09/19/17 08:25 POC Glucose (mg/dL) 433 mg/dL (65-110) H* 09/19/17 11:14 Random Glucose 374 mg/dL (75-110) H 09/19/17 08:25 Calcium 8.9 mg/dl (8.6-10.4) 09/19/17 08:25 Phosphorus 3.6 mg/dL (2.5-4.5) 09/19/17 08:25 Magnesium 2.0 mg/dL (1.6-2.3) 09/19/17 08:25 Total Bilirubin 0.9 mg/dL (0.2-1.3) 09/19/17 08:25 AST 56 U/L (17-59) 09/19/17 08:25 ALT 98 U/L (21-72) H 09/19/17 08:25 Alkaline Phosphatase 91 U/L (38-126) 09/19/17 08:25 Total Protein 7.6 g/dL (6.3-8.3) 09/19/17 08:25 Albumin 4.4 g/dL (3.5-5.0) 09/19/17 08:25 Globulin 3.2 gm/dL (2.2-3.9) 09/19/17 08:25 Albumin/Globulin Ratio 1.3 (1.0-2.1) 09/19/17 08:25 Procalcitonin 0.65 NG/ML (0.19-0.49) H 09/18/17 20:31 Urine Color Yellow (YELLOW) 09/18/17 21:16 Urine Clarity Clear (Clear) 09/18/17 21:16 Urine pH 5.0 (5.0-8.0) 09/18/17 21:16 Ur Specific Tad 1.025 (1.003-1.030) 09/18/17 21:16 Urine Protein Negative mg/dL (NEGATIVE) 09/18/17 21:16 Urine Glucose (UA) 3+ mg/dL (Normal) H 09/18/17 21:16 Urine Ketones 1+ mg/dL (NEGATIVE) H 09/18/17 21:16 Urine Blood Negative (NEGATIVE) 09/18/17 21:16 Urine Nitrate Negative (NEGATIVE) 09/18/17 21:16 Urine Bilirubin Negative (NEGATIVE) 09/18/17 21:16 Urine Urobilinogen Normal mg/dL (0.2-1.0) 09/18/17 21:16 Ur Leukocyte Esterase Neg Simona/uL (Negative) 09/18/17 21:16 Urine RBC (Auto) < 1 /hpf (0-3) 09/18/17 21:16 Ur Squamous Epith Cells < 1 /hpf (0-5) 09/18/17 21:16 - Hospital Course Hospital Course: Inital history: 72 year old male with PMHx significant for HTN, CAD s/p 4 stents, DM , Chronic Leukocytosis and suspected JESUS presented in SDS following ENT surgery earlier in the day. Patient states that he was scheduled to have the procedure yesterday but then it was rescheduled to today. Patient states that in preparation for the procedure, he was asked to skip his BP medication, He states that he did not take his medications for the past two days as a result. Patient states that ten years he go, he had some sort of trauma to the face which resulted in a foreign body which entered and obstructed his nasal passages. Patient states that he has has problems breathing off and on as a result. After the procedure earlier today, patient's blood pressure became quite elevated. He admitted to a mild headache and some dyspnea. Patient denies chest pain, palpitations, paresthesias, nausea and vomiting. Hospital course: Patient admitted to [facility] with the following inital history. He was taken to the OR with Dr. Lara who did surgery. Before that he was seen for medical optimization by Dr. Adair. His insulin was also increased while in the hospital as well. While he was here he was white count kept increasing however it was found that he was recently diagnosed with CML which was discussed with patient's son. He is going to follow up with his own heme/onc physician who diagnosed him as an outpatient. He was given a few days of IV Vanc and Zosyn. Dr. Lara cleared him for discharge and gave the patient's son scripts for PO antibiotics. Patient will follow up with Dr. Lara. Please EMR for all notes write, imaging, and lab results. Discharge plan: Patient to be discharged home per Dr. Lara and Dr. Talamantes. Patient will take antibiotics per Dr. Lara. Patient will need to increase his Lantus to 40 units at night. He will also need to follow up with his PMD after discharge for post hospital care, primary care, and DM management. Patient will return to ED if symptoms return or worsen. 1. Sinusitis 2. Luekocytosis 3. DM uncontrolled 4. HTN 5. CML Discharge Exam - Head Exam Head Exam: ATRAUMATIC, NORMAL INSPECTION, NORMOCEPHALIC Additional comments: packing on his nose with no active bleeding - Respiratory Exam Respiratory Exam: Clear to PA & Lateral - Cardiovascular Exam Cardiovascular Exam: REGULAR RHYTHM - GI/Abdominal Exam GI & Abdominal Exam: Normal Bowel Sounds, Soft - Neurological Exam Neurological exam: Alert, Oriented x3 - Skin Skin Exam: Dry, Intact Discharge Plan - Follow Up Plan Condition: FAIR Disposition: HOME/ ROUTINE Instructions: Heart Healthy Diet (GEN), Diabetic Ketoacidosis (DC), Rhinosinusitis (DC), Functional Endoscopic Sinus Surgery for Rhinosinusitis (DC) , Acute Headache (DC), Chronic Hypertension (DC), Hypertensive Crisis (DC) Additional Instructions: Patient to be discharged home per Dr. Lara and Dr. Talamantes. Patient will take antibiotics per Dr. Lara. Patient will need to increase his Lantus to 40 units at night. He will also need to follow up with his PMD after discharge for post hospital care, primary care, and DM management. Patient will return to ED if symptoms return or worsen. Referrals: Renny Lara MD [Staff Provider] -
--- NOTE | 2017-09-21 14:28 | VASCLAB ---
PROCEDURE: Lower Extremity Venous Duplex Exam. HISTORY: Swelling PRIORS: None. TECHNIQUE: Bilateral common femoral, femoral, popliteal and posterior tibial, peroneal and great saphenous veins were evaluated. Flow was assessed with color Doppler, compressibility, assessment of phasic flow and augmentation response. Report prepared by KAYLYNN Heck FINDINGS: RIGHT: 1. Common Femoral Vein: 1.1. Compressibility - Fully compressible: Thrombus - None : Flow - Phasic: Augmentation -Normal: Reflux - None. 2. Femoral Vein: 2.1. Compressibility - Fully compressible: Thrombus - None : Flow - Phasic: Augmentation -Normal: Reflux - None. 3. Popliteal Vein: 3.1. Compressibility - Fully compressible: Thrombus - None : Flow - Phasic: Augmentation -Normal: Reflux - None. 4. Posterior Tibial Vein: 4.1. Compressibility - Fully compressible: Thrombus - None: Flow - Phasic: Augmentation -Normal: Reflux - None. 5. Peroneal Vein: 5.1. Compressibility - Fully compressible: Thrombus - None: Flow - Phasic: Augmentation -Normal: Reflux - None. 6. Great Saphenous Vein: 6.1. Compressibility - Fully compressible: Thrombus - None: Flow - Phasic: Augmentation - Normal: Reflux - None. LEFT: 1. Common Femoral Vein: 1.1. Compressibility - Fully compressible: Thrombus - None: Flow - Phasic: Augmentation -Normal: Reflux - None. 2. Femoral Vein: 2.1. Compressibility - Fully compressible: Thrombus - None: Flow - Phasic: Augmentation -Normal: Reflux - None. 3. Popliteal Vein: 3.1. Compressibility - Fully compressible: Thrombus - None : Flow - Phasic: Augmentation -Normal: Reflux - None. 4. Posterior Tibial Vein: 4.1. Compressibility - Fully compressible: Thrombus - None: Flow - Phasic: Augmentation -Normal: Reflux - None. 5. Peroneal Vein: 5.1. Compressibility - Fully compressible: Thrombus - None: Flow - Phasic: Augmentation -Normal: Reflux - None. 6. Great Saphenous Vein: 6.1. Compressibility - Fully compressible: Thrombus - None: Flow - Phasic: Augmentation - Normal: Reflux - None. OTHER FINDINGS: Right: None significant. Left: None significant. IMPRESSION: Right: No evidence of deep or superficial vein thrombosis of the right lower extremity. Normal valve function noted of the right side. Left: No evidence of deep or superficial vein thrombosis of the left lower extremity. Normal valve function noted of the left side.
--- NOTE | 2017-09-21 21:20 | CARD ---
APPROVED REPORT EKG Measurement Heart [id number] <Conclusion> Sinus tachycardia Otherwise normal ECG
== END 2017-09-19 14:14 | disposition home or self-care (01) | DRG 136 ==
LOC: C.SDS 07:13 → C.9E 16:33 → C.6T 18:29
PROVIDERS: ADMIT Hospitalist; ATTEND Hospitalist
PROC: 09TV8ZZ Resection of Left Ethmoid Sinus, Via Natural or Artificial Opening Endoscopic (ICD-10-PCS; 2017-09-18)
PROC: 095 Ear, Nose, Sinus, Destruction (ICD-10-PCS; 2017-09-18)
PROC: 09TU8ZZ Resection of Right Ethmoid Sinus, Via Natural or Artificial Opening Endoscopic (ICD-10-PCS; 2017-09-18)
PROC: 095 Ear, Nose, Sinus, Destruction (ICD-10-PCS; 2017-09-18)
PROC: 099Q8ZZ Drainage of Right Maxillary Sinus, Via Natural or Artificial Opening Endoscopic (ICD-10-PCS; 2017-09-18)
PROC: 099T8ZZ Drainage of Left Frontal Sinus, Via Natural or Artificial Opening Endoscopic (ICD-10-PCS; 2017-09-18)
PROC: 099S8ZZ Drainage of Right Frontal Sinus, Via Natural or Artificial Opening Endoscopic (ICD-10-PCS; 2017-09-18)
PROC: 099X8ZZ Drainage of Left Sphenoid Sinus, Via Natural or Artificial Opening Endoscopic (ICD-10-PCS; 2017-09-18)
PROC: 099W8ZZ Drainage of Right Sphenoid Sinus, Via Natural or Artificial Opening Endoscopic (ICD-10-PCS; 2017-09-18)
PROC: 099R8ZZ Drainage of Left Maxillary Sinus, Via Natural or Artificial Opening Endoscopic (ICD-10-PCS; principal; 2017-09-18 09:45)
DX: J32.2 Chronic ethmoidal sinusitis (principal); J34.89 Other specified disorders of nose and nasal sinuses; J33.8 Other polyp of sinus; R04.0 Epistaxis; D72.828 Other elevated white blood cell count; I16.0 Hypertensive urgency; E11.65 Type 2 diabetes mellitus with hyperglycemia; I11.9 Hypertensive heart disease without heart failure; G47.33 Obstructive sleep apnea (adult) (pediatric); I25.10 Atherosclerotic heart disease of native coronary artery without angina pectoris; I51.7 Cardiomegaly; Z79.82 Long term (current) use of aspirin; Z79.4 Long term (current) use of insulin; Z79.02 Long term (current) use of antithrombotics/antiplatelets; Z79.899 Other long term (current) drug therapy; Z87.891 Personal history of nicotine dependence; Z95.5 Presence of coronary angioplasty implant and graft

== ENCOUNTER 2017-09-22 09:42 | Observation (INO) | payer OTHER, MEDICAID ==
[2017-09-22 09:53] VITALS: BMI 31.3
--- NOTE | 2017-09-22 10:19 | C.PDOC ---
History Of Present Illness 72 year old male, s/p sinus surgery on 09/18/2017 as per prior records, presents to the ED with complaints of continuos nosebleed since 4am with associated headache. Patient reports original episode of nose bleed occurred 2 days prior but was light and stopped on its own. He was instructed to report to ED if bleeding occurred. Patient denies trauma, injury, fever, or other complaints. Time Seen by Provider: 09/22/17 10:15 Chief Complaint (Nursing): ENT Problem History Per: Patient History/Exam Limitations: None Onset/Duration Of Symptoms: Hrs Current Symptoms Are (Timing): Still Present Symptoms Have Been: Continuous Anticoagulant/Antiplatlet Use?: No Recent Aspirin Use: No Past Medical History Reviewed: Historical Data, Nursing Documentation, Vital Signs Vital Signs: Last Vital Signs Temp 99.1 F 09/22/17 13:27 Pulse 88 09/22/17 13:27 Resp 18 09/22/17 13:27 BP 157/84 H 09/22/17 13:27 Pulse Ox 95 09/22/17 13:27 - Medical History PMH: HTN Denies: Chronic Kidney Disease Surgical History: Coronary Stent ((4)) Family History: States: Unknown Family Hx - Social History Hx Alcohol Use: No Hx Substance Use: No Review Of Systems Constitutional: Negative for: Fever, Chills ENT: Positive for: Other (epistaxis ) Cardiovascular: Negative for: Chest Pain, Palpitations Respiratory: Negative for: Cough, Shortness of Breath Gastrointestinal: Negative for: Nausea, Vomiting Neurological: Positive for: Headache. Negative for: Weakness, Numbness Physical Exam - Physical Exam Appears: Non-toxic, No Acute Distress Skin: Warm, Dry Head: Normacephalic, No Tenderness, No Swelling, No Abrasion, Other Eye(s): bilateral: Normal Inspection, PERRL, EOMI Ear(s): Bilateral: Normal Nose: Epistaxis (actively bleeding right nare ), Other (clot noted ) Oral Mucosa: Moist Throat: Other (blood noted to posterior pharynx ) Neck: Supple Cardiovascular: Rhythm Regular, No Murmur Respiratory: No Rales, No Rhonchi, No Wheezing, Other (clear to auscultation bilaterally ) Gastrointestinal/Abdominal: Soft, No Tenderness, No Distention, No Guarding, No Rebound Extremity: Normal ROM, No Tenderness Neurological/Psych: Oriented x3, Normal Speech, Normal Cognition, Normal Cranial Nerves, No Cerebellar Signs, Normal Motor, Normal Sensation ED Course And Treatment - Laboratory Results Result Diagrams: 09/22/17 11:10 09/22/17 11:10 O2 Sat by Pulse Oximetry: 95 (RA) - Physician Consult Information Time Consulting Physician Contacted: 11:33 Physician Contacted: Renny Lara Outcome Of Conversation: Dr. Lara saw patient at bedside and agrees with plan and admission. Medical Decision Making Medical Decision Makin09/22/17 10:[address] Lara and will come to ED Dr Lara wants patient admitted to hospitalist service, keep NPO and will take to OR if bleeding re-occurs Spoke with Dr King, hospitalist to keep patient for observation 1255 Patient BP elevated and complains of headache, nasal pain from packing and light bleeding. IV Labetalol ordered. Disposition - Disposition Disposition: HOSPITALIZED Disposition Time: 12:00 Condition: STABLE - POA Present On Arrival: None - Clinical Impression Clinical Impression: H/O nasal sinusotomy, Post-operative hemorrhage - PA / [employer] / Resident Statement MD/DO has reviewed & agrees with the documentation as recorded. - Scribe Statement The provider has reviewed the documentation as recorded by the Scribe Jessica Young All medical record entries made by the Scribe were at my direction and personally dictated by me. I have reviewed the chart and agree that the record accurately reflects my personal performance of the history, physical exam, medical decision making, and the department course for this patient. I have also personally directed, reviewed, and agree with the discharge instructions and disposition. Decision To Admit - Pt Status Changed To: Hospital Disposition Of: Observation - . Bed Request Type: Regular Admitting Physician: Jacob King Patient Diagnosis: H/O nasal sinusotomy, Post-operative hemorrhage
[2017-09-22 11:19] LABS: BASO # 0.4 K/uL (0.0-0.2); BASO % 1.2 % (0.0-2.0); EOS # 0.2 K/uL (0.0-0.7); EOS % 0.5 % (0.0-4.0); HEMATOCRIT 42.6 % (35.0-51.0); LYMPH # 2.7 K/uL (1.0-4.3); LYMPH % 8.8 % (20.0-40.0); MEAN CELL VOLUME 84.7 fL (80.0-94.0); MEAN CORPUSCULAR HEMOGLOBIN 27.2 pg (27.0-31.0); MEAN CORPUSCULAR HGB CONC 32.1 g/dL (33.0-37.0); MEAN PLATELET VOLUME 8.8 fL (7.2-11.7); MONO # 1.2 K/uL (0.0-0.8); NRBC % 0.1 % (0.0-2.0); PLATELET COUNT 455 K/uL (130-400); RED CELL DISTRIBUTION WIDTH 14.4 % (11.5-14.5); WHITE BLOOD COUNT 30.6 K/uL (4.8-10.8)
[2017-09-22 11:25] LABS: CHLORIDE 95 mmol/L (98-107); SODIUM 132 mmol/L (132-148)
[2017-09-22 11:26] LABS: INR 1.2; POTASSIUM 4.6 mmol/L (3.6-5.2)
[2017-09-22 11:28] LABS: ALKALINE PHOSPHATASE 132 U/L (38-126); AST/SGOT 154 U/L (17-59); BILIRUBIN,TOTAL 0.6 mg/dL (0.2-1.3); BLOOD UREA NITROGEN 16 mg/dL (9-20); CARBON DIOXIDE 29 mmol/L (22-30); GFR AFRICAN-AMERICAN > 60; TOTAL PROTEIN 8.7 g/dL (6.3-8.3)
[2017-09-22 11:29] LABS: ALT/SGPT 206 U/L (21-72); CALCIUM 9.5 mg/dl (8.6-10.4)
[2017-09-22 11:56] LABS: GLUCOSE,RANDOM 476 mg/dL (75-110)
[2017-09-22] MEDS ORDERED: Sodium Chloride 0.9% 1,000 ML ONE (12:01)
[2017-09-22] MEDS ORDERED: Sodium Chloride 0.9% 1,000 ML IV ONE (12:01)
[2017-09-22] MEDS ORDERED: (Novolin R) Insulin Human Regular 100 units/ml vial IV ONE (12:03)
[2017-09-22] MEDS ORDERED: (Novolin R) Insulin Human Regular 100 units/ml vial ONE (12:10)
[2017-09-22 12:13] LABS: BASOPHIL 2 % (0-2); EOSINOPHIL 1 % (0-4); METAMYELOCYTE 2 % (0-0); MYELOCYTE 7 % (0-0); NEUTROPHIL 68 % (50-75); TOTAL CELLS COUNTED 100
[2017-09-22] MEDS ORDERED: Labetalol 25mg/5ml Syringe IV STA (12:55)
[2017-09-22] MEDS ORDERED: Labetalol 25mg/5ml Syringe ONE (13:00)
--- NOTE | 2017-09-22 14:02 | CP.PCM.HP ---
<Jake Wynn - Last Filed: 09/22/17 17:42> History of Present Illness - History of Present Illness History of Present Illness: This patient is a 72 year old male with a past medical history of HTN, CAD w/ 4 stents, DM II, and recently diagnosed CML. Patient is status post nasal sinustomy on 09/18/[address] Lara. Patient presented due to continuous nosebleed that started at 4am this morning with associated headache. Patient had nosebleed 2 days ago that stopped spontaneously. He was told to come to the ED if he had a bleed on discharge. ROS (+) Headache, Nose pain (-) Dizziness, lightheadednes, ear pain, ear discharge, n/v/d, constipation, ringing in the ears, blurry vision, chest pain, sob, palpitations, abdominal pain, changes in bowel habits, or urinary symptoms PMHx: HTN, CAD w/ 4 stents, DM, CML Allergies: NKDA PSHx: Nasal sinustomy on 09/18/17 FamHx: Denies Meds: per MAR Social Hx: Denies tobacco, alcohol, and illicit drug use. ENT: Dr. Lara Present on Admission - Present on Admission Any Indicators Present on Admission: Yes History of Uncontrolled Diabetes: Yes Review of Systems - Review of Systems All systems: reviewed and no additional remarkable complaints except Review of Systems: as per HPI Past Patient History - Past Medical History & Family History Past Medical History?: Yes - Past Social History Smoking Status: Former Smoker - CARDIAC Hx Hypertension: Yes - PULMONARY Hx Respiratory Disorders: No - NEUROLOGICAL Hx Neurological Disorder: No - HEENT Hx HEENT Problems: Yes Other/Comment: HX: MAXILLARY SINSUS, FRONTAL SINSUS, ETHMOID SINSUS, SPHENOID SINSUS - RENAL Hx Chronic Kidney Disease: No - ENDOCRINE/METABOLIC Hx Diabetes Mellitus Type 1: Yes - HEMATOLOGICAL/ONCOLOGICAL Hx Blood Disorders: Yes Other/Comment: Leukocytosis (See Dr. Campbell's note) - INTEGUMENTARY Hx Dermatological Problems: No - MUSCULOSKELETAL/RHEUMATOLOGICAL Hx Musculoskeletal Disorders: No Hx Falls: No - GASTROINTESTINAL Hx Gastrointestinal Disorders: No - GENITOURINARY/GYNECOLOGICAL Hx Genitourinary Disorders: No - PSYCHIATRIC Hx Substance Use: No - SURGICAL HISTORY Hx Coronary Stent: Yes ((4)) - ANESTHESIA Hx Anesthesia: Yes Hx Anesthesia Reactions: No Hx Malignant Hyperthermia: No Meds Allergies/Adverse Reactions: Allergies Allergy/AdvReac Type Severity Reaction Status Date / Time No Known Allergies Allergy Verified 09/22/17 09:53 Physical Exam - Constitutional Appears: Well, Non-toxic, No Acute Distress - Head Exam Head Exam: ATRAUMATIC, NORMAL INSPECTION, NORMOCEPHALIC - Eye Exam Eye Exam: EOMI, PERRL. absent: Scleral icterus - ENT Exam ENT Exam: TM's Normal Bilaterally Additional comments: Dried Blood in nasal passage and oropharynx - Neck Exam Neck exam: Negative for: Lymphadenopathy - Respiratory Exam Respiratory Exam: Clear to Auscultation Bilateral, NORMAL BREATHING PATTERN. absent: Rales, Rhonchi, Wheezes, Respiratory Distress, Stridor - Cardiovascular Exam Cardiovascular Exam: RRR, +S1, +S2 - GI/Abdominal Exam GI & Abdominal Exam: Normal Bowel Sounds, Soft. absent: Tenderness - Extremities Exam Additional comments: Distal LLE swelling, NOn-tender. (Has been worked up, No DVT) - Neurological Exam Neurological exam: Alert, Oriented x3 - Psychiatric Exam Psychiatric exam: Normal Affect, Normal Mood - Skin Skin Exam: Dry, Intact, Normal Color, Warm Results - Vital Signs Recent Vital Signs: Last Vital Signs Temp 99.1 F 09/22/17 13:27 Pulse 88 09/22/17 13:27 Resp 18 09/22/17 13:27 BP 157/84 H 09/22/17 13:27 Pulse Ox 95 09/22/17 13:27 - Labs Result Diagrams: 09/22/17 11:10 09/22/17 11:10 Labs: Laboratory Results - last 24 hr 09/22/17 09/22/17 09/22/17 11:10 11:10 11:10 WBC 30.6 H RBC 5.03 Hgb 13.7 Hct 42.6 MCV 84.7 MCH 27.2 MCHC 32.1 L RDW 14.4 Plt Count 455 H MPV 8.8 Neut % (Auto) 85.5 H Lymph % (Auto) 8.8 L Ector % (Auto) 4.0 Eos % (Auto) 0.5 Baso % (Auto) 1.2 Neut # 26.1 H Lymph # 2.7 Ector # 1.2 H Eos # 0.2 Baso # 0.4 H Neutrophils % (Manual) 68 Band Neutrophils % 14 H* Lymphocytes % (Manual) 3 L Monocytes % (Manual) 3 Eosinophils % (Manual) 1 Basophils % (Manual) 2 Metamyelocytes % 2 H Myelocytes % 7 H Platelet Estimate Slightly increased H RBC Morphology Normal PT 14.2 H INR 1.2 APTT 35 H Sodium 132 Potassium 4.6 Chloride 95 L Carbon Dioxide 29 Anion Gap 13 BUN 16 Creatinine 0.6 L Est GFR ( Amer) > 60 Est GFR (Non-Af Amer) > 60 Random Glucose 476 H* D Calcium 9.5 Total Bilirubin 0.6 AST 154 H D ALT 206 H D Alkaline Phosphatase 132 H D Total Protein 8.7 H Albumin 4.4 Globulin 4.3 H Albumin/Globulin Ratio 1.0 Blood Type Antibody Screen 09/22/17 11:10 WBC RBC Hgb Hct MCV MCH MCHC RDW Plt Count MPV Neut % (Auto) Lymph % (Auto) Ector % (Auto) Eos % (Auto) Baso % (Auto) Neut # Lymph # Ector # Eos # Baso # Neutrophils % (Manual) Band Neutrophils % Lymphocytes % (Manual) Monocytes % (Manual) Eosinophils % (Manual) Basophils % (Manual) Metamyelocytes % Myelocytes % Platelet Estimate RBC Morphology PT INR APTT Sodium Potassium Chloride Carbon Dioxide Anion Gap BUN Creatinine Est GFR ( Amer) Est GFR (Non-Af Amer) Random Glucose Calcium Total Bilirubin AST ALT Alkaline Phosphatase Total Protein Albumin Globulin Albumin/Globulin Ratio Blood Type B POSITIVE Antibody Screen Negative Assessment & Plan - Assessment and Plan (Free Text) Assessment: This patient is a 72 year old male with a past medical history of HTN, CAD w/ 4 stents, DM II, and recently diagnosed CML. He is admitted for evaluation and treatment of nose bleed. Patient is post-op day 4 for nasal snustomy. Plan: S/P Nasal Sinustomy -bleeding stopped in ED after packing - ENT - Dr. Lara is aware - NPO Diet Hx of HTN -Cont. home enalapril -Metoprolol 25 BID DM II Lantus 20 QHS Insulin Regular - Medium Sliding Scale Left Lower Extremity swelling -Patient states his leg has been like that for 20 years -Patient states he has seen a physician about this and was told that his leg is okay. He was told there was no DVT Prophylaxis Protonix Dispo: Patient admitted for observation. Will likely leave tomorrow. Patient seen and discussed with Attending (Dr. King) Jake yWnn PGY-1 - Date & Time Date: 09/22/17 Time: 15:20 <Jacob King H - Last Filed: 09/22/17 18:21> Results - Vital Signs Recent Vital Signs: Last Vital Signs Temp 98.7 F 09/22/17 15:30 Pulse 84 09/22/17 15:30 Resp 20 09/22/17 15:30 BP 156/95 H 09/22/17 15:30 Pulse Ox 95 09/22/17 15:30 - Labs Result Diagrams: 09/22/17 11:10 09/22/17 11:10 Labs: Laboratory Results - last 24 hr 09/22/17 09/22/17 09/22/17 11:10 11:10 11:10 WBC 30.6 H RBC 5.03 Hgb 13.7 Hct 42.6 MCV 84.7 MCH 27.2 MCHC 32.1 L RDW 14.4 Plt Count 455 H MPV 8.8 Neut % (Auto) 85.5 H Lymph % (Auto) 8.8 L Ector % (Auto) 4.0 Eos % (Auto) 0.5 Baso % (Auto) 1.2 Neut # 26.1 H Lymph # 2.7 Ector # 1.2 H Eos # 0.2 Baso # 0.4 H Neutrophils % (Manual) 68 Band Neutrophils % 14 H* Lymphocytes % (Manual) 3 L Monocytes % (Manual) 3 Eosinophils % (Manual) 1 Basophils % (Manual) 2 Metamyelocytes % 2 H Myelocytes % 7 H Platelet Estimate Slightly increased H RBC Morphology Normal PT 14.2 H INR 1.2 APTT 35 H Sodium 132 Potassium 4.6 Chloride 95 L Carbon Dioxide 29 Anion Gap 13 BUN 16 Creatinine 0.6 L Est GFR ( Amer) > 60 Est GFR (Non-Af Amer) > 60 POC Glucose (mg/dL) Random Glucose 476 H* D Calcium 9.5 Total Bilirubin 0.6 AST 154 H D ALT 206 H D Alkaline Phosphatase 132 H D Total Protein 8.7 H Albumin 4.4 Globulin 4.3 H Albumin/Globulin Ratio 1.0 Blood Type Antibody Screen 09/22/17 09/22/17 11:10 17:21 WBC RBC Hgb Hct MCV MCH MCHC RDW Plt Count MPV Neut % (Auto) Lymph % (Auto) Ector % (Auto) Eos % (Auto) Baso % (Auto) Neut # Lymph # Ector # Eos # Baso # Neutrophils % (Manual) Band Neutrophils % Lymphocytes % (Manual) Monocytes % (Manual) Eosinophils % (Manual) Basophils % (Manual) Metamyelocytes % Myelocytes % Platelet Estimate RBC Morphology PT INR APTT Sodium Potassium Chloride Carbon Dioxide Anion Gap BUN Creatinine Est GFR ( Amer) Est GFR (Non-Af Amer) POC Glucose (mg/dL) 275 H Random Glucose Calcium Total Bilirubin AST ALT Alkaline Phosphatase Total Protein Albumin Globulin Albumin/Globulin Ratio Blood Type B POSITIVE Antibody Screen Negative Attending/Attestation - Attestation I have personally seen and examined this patient.: Yes I have fully participated in the care of the patient.: Yes I have reviewed all pertinent clinical information: Yes Notes (Text): 09/22/17 18:19 Medical Attending: Patient was seen and examined by me, agrees the above note by the medical assistant dermatology. The patient's family member was also at bedside. The patient was okay with this. As reported above in the resident note the patient is status post very recent sinus procedure by ENT. The patient subsequently had some minimal bleeding over the weekend however just very recently there was recurrence of the bleeding again. The patient understand was evaluated by ENT in the emergency room and he initially had packing done nasal cavities however by the time I got there it appears that the packing was ready removed. The hemoglobin is stable at this time, nevertheless we will monitor this. And he was not having any reports of palpitations, chest pain, or shortness of breath. With regards to his elevated white blood cell count, the patient does have a past medical history including CML for which he is receiving treatment I explained to the patient that if the patient does not have any substantial nasal bleeding overnight probably will be discharged relatively soon Thank you very much, Jacob King
[2017-09-22 17:27] VITALS: RESP 20
[2017-09-22] MEDS: (Novolin R) Insulin Human Regular 100 units/ml vial SC SCH ×2 (17:32→22:27)
[2017-09-22] MEDS ORDERED: (Lantus) Insulin Glargine, Recombinant SC SCH (18:00)
[2017-09-23 01:29] VITALS: O2SAT 96
--- NOTE | 2017-09-23 03:30 | CON ---
DATE: 09/22/2017 REASON FOR CONSULTATION: Epistaxis. HISTORY OF PRESENT ILLNESS: This gentleman who had sinus surgery three days ago, began having epistaxis on the right this morning, presented to the hospital with epistaxis. PHYSICAL EXAMINATION He had bleeding on the right side of the nose. I packed the nose with afrin-soaked cotton pledgets on multiple times. It was noted that his blood pressure was high. The blood pressure was lower using medication, once the blood pressure was lower the bleeding stopped. IMPRESSION AND PLAN: The patient is being admitted for observation overnight to make sure he has no bleeds while his blood pressure has been controlled. If he is not bleeding his blood pressure seems controlled, he will be discharged home tomorrow. If he bleeds on the right side of the nose while his blood pressure is being controlled, then we will have to take him to the operating room. Renny Lara MD
[2017-09-23] MEDS: (Novolin R) Insulin Human Regular 100 units/ml vial SC SCH ×2 (07:56→13:33)
[2017-09-23 07:59] LABS: BASO # 0.4 K/uL (0.0-0.2); BASO % 1.1 % (0.0-2.0); EOS # 0.1 K/uL (0.0-0.7); EOS % 0.2 % (0.0-4.0); HEMATOCRIT 39.2 % (35.0-51.0); LYMPH # 3.5 K/uL (1.0-4.3); LYMPH % 10.1 % (20.0-40.0); MEAN CELL VOLUME 85.1 fL (80.0-94.0); MEAN CORPUSCULAR HEMOGLOBIN 27.2 pg (27.0-31.0); MEAN PLATELET VOLUME 8.6 fL (7.2-11.7); MONO # 1.5 K/uL (0.0-0.8); MONO % 4.2 % (0.0-10.0); NRBC % 0.1 % (0.0-2.0); RED CELL DISTRIBUTION WIDTH 14.8 % (11.5-14.5); WHITE BLOOD COUNT 35.1 K/uL (4.8-10.8)
--- NOTE | 2017-09-23 08:03 | CP.PCM.PN ---
Subjective - Date & Time of Evaluation Date of Evaluation: 09/23/17 Time of Evaluation: 08:01 - Subjective Subjective: Very mild epistaxis on R nose: no bleeding now a/P epistaxis resolving control bp as per med ok to d/c home when bp controled well Objective - Vital Signs/Intake and Output Vital Signs (last 24 hours): Temp Pulse Resp BP Pulse Ox 98.7 F 105 H 20 145/91 H 96 09/22/17 23:00 09/22/17 23:00 09/22/17 23:00 09/22/17 23:00 09/22/17 23:00 - Medications Medications: Current Medications Enalapril Maleate (Vasotec) 10 mg PO DAILY [facility] Insulin Glargine (Lantus) 20 unit SC QPM [facility] Last Admin: 09/22/17 17:33 Dose: Not Given Insulin Human Regular (Novolin R) 0 unit SC ACHS [facility] PRN Reason: Protocol Last Admin: 09/22/17 22:27 Dose: Not Given Metoprolol Tartrate (Lopressor) 25 mg PO BID [facility] Last Admin: 09/22/17 18:00 Dose: 25 mg Pantoprazole Sodium (Protonix Ec Tab) 40 mg PO DAILY [facility] - Labs Labs: 09/22/17 11:10 09/22/17 11:10 PT 14.2 SECONDS (9.7-12.2) H 09/22/17 11:10 INR 1.2 09/22/17 11:10 APTT 35 SECONDS (21-34) H 09/22/17 11:10
[2017-09-23 08:40] LABS: CHLORIDE 98 mmol/L (98-107); POTASSIUM 4.1 mmol/L (3.6-5.2); SODIUM 133 mmol/L (132-148)
[2017-09-23 08:42] LABS: AST/SGOT 142 U/L (17-59); BILIRUBIN,TOTAL 0.9 mg/dL (0.2-1.3); CARBON DIOXIDE 26 mmol/L (22-30); GFR AFRICAN-AMERICAN > 60
[2017-09-23 08:43] LABS: ALB/GLOB RATIO 1.3 (1.0-2.1); ALKALINE PHOSPHATASE 87 U/L (38-126); ALT/SGPT 198 U/L (21-72); BLOOD UREA NITROGEN 13 mg/dL (9-20); CALCIUM 8.6 mg/dl (8.6-10.4); GLUCOSE,RANDOM 286 mg/dL (75-110); PHOSPHOROUS 3.6 mg/dL (2.5-4.5); TOTAL PROTEIN 6.6 g/dL (6.3-8.3)
[2017-09-23 08:44] LABS: MAGNESIUM 1.6 mg/dL (1.6-2.3)
[2017-09-23 08:49] VITALS: BP 151/88; PULSE 98; TEMP 97.8
[2017-09-23] MEDS ORDERED: Pantoprazole 40 mg EC Tab PO SCH (10:00)
--- NOTE | 2017-09-23 12:28 | CP.PCM.DIS ---
<Tony Sierra - Last Filed: 09/23/17 12:22> Provider - Provider Date of Admission: 09/22/17 12:03 Attending physician: Jacob King DO Primary care physician: Dr Chauhan Consults: ENT - Dr Lara Time Spent in preparation of Discharge (in minutes): 45 Diagnosis - Discharge Diagnosis (1) H/O nasal sinusotomy Status: Resolved Priority: Medium (2) Post-operative hemorrhage Status: Resolved Priority: High (3) Diabetes mellitus Status: Chronic Priority: Medium (4) Hypertension Status: Chronic Priority: Medium Hospital Course - Lab Results Lab Results: Most Recent Lab Values WBC 35.1 K/uL (4.8-10.8) H 09/23/17 07:33 RBC 4.60 Mil/uL (4.40-5.90) 09/23/17 07:33 Hgb 12.5 g/dL (12.0-18.0) 09/23/17 07:33 Hct 39.2 % (35.0-51.0) 09/23/17 07:33 MCV 85.1 fL (80.0-94.0) 09/23/17 07:33 MCH 27.2 pg (27.0-31.0) 09/23/17 07:33 MCHC 32.0 g/dL (33.0-37.0) L 09/23/17 07:33 RDW 14.8 % (11.5-14.5) H 09/23/17 07:33 Plt Count 455 K/uL (130-400) H 09/23/17 07:33 MPV 8.6 fL (7.2-11.7) 09/23/17 07:33 Neut % (Auto) 84.4 % (50.0-75.0) H 09/23/17 07:33 Lymph % (Auto) 10.1 % (20.0-40.0) L 09/23/17 07:33 Kinney % (Auto) 4.2 % (0.0-10.0) 09/23/17 07:33 Eos % (Auto) 0.2 % (0.0-4.0) 09/23/17 07:33 Baso % (Auto) 1.1 % (0.0-2.0) 09/23/17 07:33 Neut # 29.7 K/uL (1.8-7.0) H 09/23/17 07:33 Lymph # 3.5 K/uL (1.0-4.3) 09/23/17 07:33 Kinney # 1.5 K/uL (0.0-0.8) H 09/23/17 07:33 Eos # 0.1 K/uL (0.0-0.7) 09/23/17 07:33 Baso # 0.4 K/uL (0.0-0.2) H 09/23/17 07:33 Neutrophils % (Manual) 68 % (50-75) 09/22/17 11:10 Band Neutrophils % 14 % (0-2) H* 09/22/17 11:10 Lymphocytes % (Manual) 3 % (20-40) L 09/22/17 11:10 Monocytes % (Manual) 3 % (0-10) 09/22/17 11:10 Eosinophils % (Manual) 1 % (0-4) 09/22/17 11:10 Basophils % (Manual) 2 % (0-2) 09/22/17 11:10 Metamyelocytes % 2 % (0-0) H 09/22/17 11:10 Myelocytes % 7 % (0-0) H 09/22/17 11:10 Differential Comment 09/23/17 07:33 Platelet Estimate Slightly increased (NORMAL) H 09/22/17 11:10 RBC Morphology Normal 09/22/17 11:10 PT 14.2 SECONDS (9.7-12.2) H 09/22/17 11:10 INR 1.2 09/22/17 11:10 APTT 35 SECONDS (21-34) H 09/22/17 11:10 Sodium 133 mmol/L (132-148) 09/23/17 07:33 Potassium 4.1 mmol/L (3.6-5.2) 09/23/17 07:33 Chloride 98 mmol/L (98-107) 09/23/17 07:33 Carbon Dioxide 26 mmol/L (22-30) 09/23/17 07:33 Anion Gap 14 (10-20) 09/23/17 07:33 BUN 13 mg/dL (9-20) 09/23/17 07:33 Creatinine 0.6 mg/dL (0.8-1.5) L 09/23/17 07:33 Est GFR ( Amer) > 60 09/23/17 07:33 Est GFR (Non-Af Amer) > 60 09/23/17 07:33 POC Glucose (mg/dL) 253 mg/dL (65-110) H 09/23/17 06:17 Random Glucose 286 mg/dL (75-110) H 09/23/17 07:33 Calcium 8.6 mg/dl (8.6-10.4) 09/23/17 07:33 Phosphorus 3.6 mg/dL (2.5-4.5) 09/23/17 07:33 Magnesium 1.6 mg/dL (1.6-2.3) 09/23/17 07:33 Total Bilirubin 0.9 mg/dL (0.2-1.3) 09/23/17 07:33 AST 142 U/L (17-59) H 09/23/17 07:33 ALT 198 U/L (21-72) H 09/23/17 07:33 Alkaline Phosphatase 87 U/L (38-126) 09/23/17 07:33 Total Protein 6.6 g/dL (6.3-8.3) 09/23/17 07:33 Albumin 3.8 g/dL (3.5-5.0) 09/23/17 07:33 Globulin 2.8 gm/dL (2.2-3.9) 09/23/17 07:33 Albumin/Globulin Ratio 1.3 (1.0-2.1) 09/23/17 07:33 Blood Type B POSITIVE 09/22/17 11:10 Antibody Screen Negative 09/22/17 11:10 - Hospital Course Hospital Course: This patient is a 72 year old male with a past medical history of HTN, CAD w/ 4 stents, DM II, and recently diagnosed CML. Patient is status post nasal sinustomy on 09/18/[address] Lara. Patient presented due to continuous nosebleed that started at 4am this morning with associated headache. Patient had nosebleed 2 days ago that stopped spontaneously. He was told to come to the ED if he had a bleed on discharge. ROS (+) Headache, Nose pain (-) Dizziness, lightheadednes, ear pain, ear discharge, n/v/d, constipation, ringing in the ears, blurry vision, chest pain, sob, palpitations, abdominal pain, changes in bowel habits, or urinary symptoms ENT: Dr. Lara PMHx: HTN, CAD w/ 4 stents, DM, CML Allergies: NKDA PSHx: Nasal sinustomy on 09/18/17 FamHx: Denies Meds: per MAR Social Hx: Denies tobacco, alcohol, and illicit drug use. HOSPITAL COURSE: Patient presented with epistaxis on 09/22 status post sinustomy on 09/18. His bleeding was stopped with packing. ENT Dr Lara, the surgeon who performed the surgery, was made aware. He was kept on a NPO diet initially. Because he was NPO we gave him only 1/2 his lantus dose and put him on a insulin sliding scale. His blood pressure home medications were continued, and an additional hypertensive was added, amlodipine 5mg po daily to control his blood pressure. He was given a script at discharge. No other issues were address. His epistaxis had completely resolved at discharge. Discharge Exam - Additional Findings Additional findings: - Constitutional Appears: Well, Non-toxic, No Acute Distress - Head Exam Head Exam: ATRAUMATIC, NORMAL INSPECTION, NORMOCEPHALIC - Eye Exam Eye Exam: EOMI, PERRL. absent: Scleral icterus - ENT Exam ENT Exam: TM's Normal Bilaterally Additional comments: Dried Blood in nasal passage and oropharynx. No epistaxis. - Neck Exam Neck exam: Negative for: Lymphadenopathy - Respiratory Exam Respiratory Exam: Clear to Auscultation Bilateral, NORMAL BREATHING PATTERN. absent: Rales, Rhonchi, Wheezes, Respiratory Distress, Stridor - Cardiovascular Exam Cardiovascular Exam: RRR, +S1, +S2 - GI/Abdominal Exam GI & Abdominal Exam: Normal Bowel Sounds, Soft. absent: Tenderness - Extremities Exam Additional comments: Distal LLE swelling, Non-tender. (Has been worked up, No DVT) - Neurological Exam Neurological exam: Alert, Oriented x3 - Psychiatric Exam Psychiatric exam: Normal Affect, Normal Mood - Skin Skin Exam: Dry, Intact, Normal Color, Warm Discharge Plan - Discharge Medications Prescriptions: amLODIPine [Norvasc] 5 mg PO DAILY #30 tab - Follow Up Plan Condition: STABLE Disposition: HOME/ ROUTINE Instructions: Amlodipine (By mouth), Nosebleed (GEN), Heart Healthy Diet (DC), Hypertension (DC), Hypertension (GEN) Additional Instructions: Patient is medically stable for discharge. Patient will be discharged with a script for the following NEW medication: Amlodipine 5mg 1 tablet by mouth once a day Patient is to resume all his normal home medications. Patient is to follow-up with his primary care physican, Dr Chauhan, regarding this admission. Patient is to follow-up with his ENT, Dr Lara, for further follow-up care. If symptoms return or worsen, patient should return to the ER. Referrals: Renny Lara MD [Staff Provider] - <Jacob King - Last Filed: 09/23/17 18:00> Provider - Provider Date of Admission: 09/22/17 12:03 Attending physician: Jacob King DO Hospital Course - Lab Results Lab Results: Most Recent Lab Values WBC 35.1 K/uL (4.8-10.8) H 09/23/17 07:33 RBC 4.60 Mil/uL (4.40-5.90) 09/23/17 07:33 Hgb 12.5 g/dL (12.0-18.0) 09/23/17 07:33 Hct 39.2 % (35.0-51.0) 09/23/17 07:33 MCV 85.1 fL (80.0-94.0) 09/23/17 07:33 MCH 27.2 pg (27.0-31.0) 09/23/17 07:33 MCHC 32.0 g/dL (33.0-37.0) L 09/23/17 07:33 RDW 14.8 % (11.5-14.5) H 09/23/17 07:33 Plt Count 455 K/uL (130-400) H 09/23/17 07:33 MPV 8.6 fL (7.2-11.7) 09/23/17 07:33 Neut % (Auto) 84.4 % (50.0-75.0) H 09/23/17 07:33 Lymph % (Auto) 10.1 % (20.0-40.0) L 09/23/17 07:33 Kinney % (Auto) 4.2 % (0.0-10.0) 09/23/17 07:33 Eos % (Auto) 0.2 % (0.0-4.0) 09/23/17 07:33 Baso % (Auto) 1.1 % (0.0-2.0) 09/23/17 07:33 Neut # 29.7 K/uL (1.8-7.0) H 09/23/17 07:33 Lymph # 3.5 K/uL (1.0-4.3) 09/23/17 07:33 Kinney # 1.5 K/uL (0.0-0.8) H 09/23/17 07:33 Eos # 0.1 K/uL (0.0-0.7) 09/23/17 07:33 Baso # 0.4 K/uL (0.0-0.2) H 09/23/17 07:33 Neutrophils % (Manual) 68 % (50-75) 09/22/17 11:10 Band Neutrophils % 14 % (0-2) H* 09/22/17 11:10 Lymphocytes % (Manual) 3 % (20-40) L 09/22/17 11:10 Monocytes % (Manual) 3 % (0-10) 09/22/17 11:10 Eosinophils % (Manual) 1 % (0-4) 09/22/17 11:10 Basophils % (Manual) 2 % (0-2) 09/22/17 11:10 Metamyelocytes % 2 % (0-0) H 09/22/17 11:10 Myelocytes % 7 % (0-0) H 09/22/17 11:10 Differential Comment 09/23/17 07:33 Platelet Estimate Slightly increased (NORMAL) H 09/22/17 11:10 RBC Morphology Normal 09/22/17 11:10 PT 14.2 SECONDS (9.7-12.2) H 09/22/17 11:10 INR 1.2 09/22/17 11:10 APTT 35 SECONDS (21-34) H 09/22/17 11:10 Sodium 133 mmol/L (132-148) 09/23/17 07:33 Potassium 4.1 mmol/L (3.6-5.2) 09/23/17 07:33 Chloride 98 mmol/L (98-107) 09/23/17 07:33 Carbon Dioxide 26 mmol/L (22-30) 09/23/17 07:33 Anion Gap 14 (10-20) 09/23/17 07:33 BUN 13 mg/dL (9-20) 09/23/17 07:33 Creatinine 0.6 mg/dL (0.8-1.5) L 09/23/17 07:33 Est GFR ( Amer) > 60 09/23/17 07:33 Est GFR (Non-Af Amer) > 60 09/23/17 07:33 POC Glucose (mg/dL) 253 mg/dL (65-110) H 09/23/17 06:17 Random Glucose 286 mg/dL (75-110) H 09/23/17 07:33 Calcium 8.6 mg/dl (8.6-10.4) 09/23/17 07:33 Phosphorus 3.6 mg/dL (2.5-4.5) 09/23/17 07:33 Magnesium 1.6 mg/dL (1.6-2.3) 09/23/17 07:33 Total Bilirubin 0.9 mg/dL (0.2-1.3) 09/23/17 07:33 AST 142 U/L (17-59) H 09/23/17 07:33 ALT 198 U/L (21-72) H 09/23/17 07:33 Alkaline Phosphatase 87 U/L (38-126) 09/23/17 07:33 Total Protein 6.6 g/dL (6.3-8.3) 09/23/17 07:33 Albumin 3.8 g/dL (3.5-5.0) 09/23/17 07:33 Globulin 2.8 gm/dL (2.2-3.9) 09/23/17 07:33 Albumin/Globulin Ratio 1.3 (1.0-2.1) 09/23/17 07:33 Blood Type B POSITIVE 09/22/17 11:10 Antibody Screen Negative 09/22/17 11:10 Attending/Attestation - Attestation I have personally seen and examined this patient.: Yes I have fully participated in the care of the patient.: Yes I have reviewed all pertinent clinical information, including history, physical exam and plan: Yes Notes (Text): 09/23/17 17:59 Medical attending: Patient was seen and examined by me, agrees the above note by medical records supervisor. Patient's family member was present at bedside. The patient was okay with this. Overnight he did not have any acute amounts of bleeding from his nose. He states that he overall did quite well overnight We discussed with the patient that he needs to take his blood pressure medication including metoprolol, enalapril, and worse can add on a low dose Norvasc 5 mg as well he normally takes aspirin since he does have a cardiac history, however because the recent bleeding we advised him to hold off on aspirin for a few days before restarting. Thank you very much, Jacob King
[2017-09-23] MEDS ORDERED: Influenza Vaccine 60 mcg/0.5 mL SYR (4YR UP) IM ONE (13:30)
[2017-09-23] MEDS ORDERED: Pneumococcal 23-Valent Vaccine SC ONE (13:30)
[2017-09-24] MEDS ORDERED: Influenza Vaccine 60 mcg/0.5 mL SYR (4YR UP) IM ONE (13:00)
[2017-09-24] MEDS ORDERED: Pneumococcal 23-Valent Vaccine SC ONE (13:00)
== END 2017-09-23 14:54 | disposition home or self-care (01) ==
LOC: C.ER 09:42 → C.9E 12:03 → C.6T 13:18
PROVIDERS: ADMIT Hospitalist; ATTEND Hospitalist
DX: J95.830 Postprocedural hemorrhage of a respiratory system organ or structure following a respiratory system procedure (principal); R04.0 Epistaxis; I10 Essential (primary) hypertension
CPT/HCPCS: 36415; 80053; 82948; 83735; 84100; 85025; 85610; 85730; 86850; 86900; 90674; 90732; 96360; 97162; 99285; G0008; G0009; G0378; G8978; G8979; G8980; J0360; J7040

== ENCOUNTER 2018-01-24 23:05 | Emergency (ER) | payer MEDICARE, MEDICAID ==
[2018-01-24 23:05] VITALS: BMI 31.3
[2018-01-25 00:29] LABS: BASO # 0.2 K/uL (0.0-0.2); BASO % 0.6 % (0.0-2.0); EOS # 0.3 K/uL (0.0-0.7); EOS % 0.7 % (0.0-4.0); HEMOGLOBIN 13.2 g/dL (12.0-18.0); LYMPH # 4.1 K/uL (1.0-4.3); LYMPH % 10.9 % (20.0-40.0); MEAN CELL VOLUME 83.5 fL (80.0-94.0); MEAN CORPUSCULAR HEMOGLOBIN 27.9 pg (27.0-31.0); MEAN CORPUSCULAR HGB CONC 33.5 g/dL (33.0-37.0); MEAN PLATELET VOLUME 7.7 fL (7.2-11.7); MONO # 1.3 K/uL (0.0-0.8); MONO % 3.4 % (0.0-10.0); NEUT # 31.4 K/uL (1.8-7.0); NEUT % 84.4 % (50.0-75.0); PLATELET COUNT 466 K/uL (130-400); RBC 4.73 Mil/uL (4.40-5.90); RED CELL DISTRIBUTION WIDTH 15.4 % (11.5-14.5)
[2018-01-25 00:32] LABS: WHITE BLOOD COUNT 37.2 K/uL (4.8-10.8)
[2018-01-25 00:40] LABS: INR 1.4; PROTHROMBIN TIME 16.2 SECONDS (9.7-12.2)
[2018-01-25 00:45] LABS: ALBUMIN 3.8 g/dL (3.5-5.0); CALCIUM 8.9 mg/dl (8.6-10.4); GFR AFRICAN-AMERICAN > 60; GFR NON-AFRICAN AMERICAN > 60
[2018-01-25 00:48] LABS: ALT/SGPT 93 U/L (21-72); AST/SGOT 62 U/L (17-59); BLOOD UREA NITROGEN 20 mg/dL (9-20)
[2018-01-25] MEDS ORDERED: Gelatin Sponge 10 X 12.5 cm (Gelfilm Sterile Non Opthalmic) MM ONE (01:05)
[2018-01-25] MEDS ORDERED: Absorbable Gelatin Sponge Size 12-7 ONE (01:06)
[2018-01-25 01:28] VITALS: RESP 18
[2018-01-25 01:35] LABS: BANDS 23 % (0-2); BLASTS 1 % (0-0); EOSINOPHIL 1 % (0-4); LYMPHOCYTE 10 % (20-40); METAMYELOCYTE 4 % (0-0); MONOCYTE 3 % (0-10); MYELOCYTE 11 % (0-0); NEUTROPHIL 45 % (50-75); NUCLEATED RED BLOOD CELL 2 % (0-0); PLATELET ESTIMATE SLIGHTLY INCREASED (NORMAL); REACTIVE LYMPHOCYTES 2 % (0-0); SMUDGE CELLS PRESENT; TOTAL CELLS COUNTED 100
--- NOTE | 2018-01-25 01:36 | C.PDOC ---
History Of Present Illness 72 y/o male presents to ED to bleeding in mouth for last 1-2 hours after scratching mouth with a fish bone, pt takes effient. pt also has leukemia and dm. pt tried applying pressure to area, but still bleeding. Time Seen by Provider: 01/24/18 23:29 Chief Complaint (Nursing): Medical Clearance History Per: Patient, Family History/Exam Limitations: no limitations Onset/Duration Of Symptoms: Hrs (2) Current Symptoms Are (Timing): Still Present Severity: Moderate Past Medical History Reviewed: Historical Data, Nursing Documentation, Vital Signs Vital Signs: Last Vital Signs Temp 97.9 F 01/25/18 05:00 Pulse 88 01/25/18 05:00 Resp 18 01/25/18 05:00 BP 169/90 H 01/25/18 05:00 Pulse Ox 97 01/25/18 05:00 - Medical History PMH: Diabetes (.), HTN Denies: Chronic Kidney Disease Other PMH: leukemia Surgical History: Coronary Stent ((4)) - [facility] (09/18/17) (09/18/17) (09/18/17) (09/18/17) (09/18/17) (09/18/17) (09/18/17) (09/18/17) (09/18/17) (09/18/17) (09/18/17) Family History: States: Unknown Family Hx - Social History Hx Alcohol Use: No Hx Substance Use: No - Immunization History Hx Tetanus Toxoid Vaccination: No Hx Influenza Vaccination: Yes Hx Pneumococcal Vaccination: Yes Review Of Systems Constitutional: Negative for: Fever, Chills ENT: Positive for: Mouth Pain (bleeding) Cardiovascular: Negative for: Chest Pain Respiratory: Negative for: Shortness of Breath Gastrointestinal: Negative for: Abdominal Pain Skin: Negative for: Rash Physical Exam - Physical Exam Appears: Non-toxic, No Acute Distress Skin: Warm, Dry Head: Atraumatic, Normacephalic Tongue: Normal Appearing Gingiva: Other (edentulous, bleeding from right lower mouth) Cardiovascular: Rhythm Regular Neurological/Psych: Oriented x3, Normal Speech, Normal Cognition ED Course And Treatment - Laboratory Results Result Diagrams: 01/25/18 00:27 01/25/18 00:27 O2 Sat by Pulse Oximetry: 98 Medical Decision Making Medical Decision Making: pt with bleeding from mouth after scratching with fish bone. pt on effient. pressure applied at home, gauze packing and pressure applied in ed for 30 min + ; pt has some clot formation. but still bleeding. labs ordered. pt found to have wbc 37.5; pt has had elevated wbc in past. per son. pt has form of leukemia , and due to see hem/onc at [facility] in january to determine treatment. 115 am gelfoam applied to bleeding area in mouth. 140 am pt found to have elevated bandemia. blood cultures ua and uc ordered. 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 [address] Campbell, pt's hem/onc physician; pt has hx CML, has not received treatment for it, yet. Pt's lab work discussed with her; she sts bandemia and increasing wbc likely due to his disease (given neg lactate, afebrile) and ok to send patient home and to f/u tremayne with her for further evaluation and treatment, Discussed wiht patient and he agrees and understands. Disposition - Disposition Referrals: Mari Meza MD [Primary Care Provider] - Zulema Campbell MD [Non-Staff] - Disposition: HOME/ ROUTINE Disposition Time: 04:45 Condition: IMPROVED Additional Instructions: Please follow up with your doctor and with Dr Campbell ([facility] refrigerated c[employer] truck driver) and with a dentist this week. Keep gauze in mouth till the morning. Put warm water in your mouth to wet the gauze and gently remove it. Return to ER for any continuing bleeding. Forms: [facility] (Faroese), General Discharge Instructions - Clinical Impression Clinical Impression: Mouth bleeding
[2018-01-25 02:22] LABS: VENOUS BLOOD GAS BASE EXCESS 1.3 mmol/L (0.0-2.0); VENOUS BLOOD GAS PCO2 47 mmHg (40-60); VENOUS BLOOD GAS PO2 34 mm/Hg (30-55); VENOUS BLOOD PH 7.37 (7.32-7.43)
[2018-01-25 02:30] LABS: URINE BACTERIA RARE (<OCC); URINE BILIRUBIN NEGATIVE (NEGATIVE); URINE BLOOD NEGATIVE (NEGATIVE); URINE CLARITY Clear (Clear); URINE COLOR Straw (YELLOW); URINE GLUCOSE (UA) 3+ mg/dL (Normal); URINE LEUKOCYTE ESTERASE NEG Leu/uL (Negative); URINE NITRATE NEGATIVE (NEGATIVE); URINE PROTEIN NEGATIVE (NEGATIVE); URINE UROBILINOGEN NORMAL mg/dL (0.2-1.0)
[2018-01-25 05:01] VITALS: BP 169/90; PULSE 88; TEMP 97.9
--- NOTE | 2018-01-25 08:52 | RAD ---
Chest x-ray two views History: Leukocytosis. Comparison: 09/18/2017 Findings: Mild venous congestion. Right hilar prominence. Mild nodularity projecting over the medial right upper lung zone. Tortuous aorta. Heart size within normal limits. Degenerative changes in the spine. Impression: Mild venous congestion. Right hilar prominence. Mild nodularity projecting over the medial right upper lung zone. Tortuous aorta.
[2018-01-27 18:59] VITALS: O2SAT 98
== END 2018-01-25 05:16 | disposition home or self-care (01) ==
LOC: C.ER 23:05 → SUPCPDRO 23:05 → C.ER 01-25 05:16
DX: K13.79 Other lesions of oral mucosa (principal)